=== PATIENT | male | born 1935 | race Caucasian/White ===

== ENCOUNTER 2017-11-18 10:00 | Observation (INO) ==
[2017-11-18] MEDS ORDERED: 0.9 % Sodium Chloride 1,000 ML IVC ONE ×2 (10:05→12:50)
--- NOTE | 2017-11-18 10:19 | Emergency Department Note ---
Disposition Clinical Impression: Pneumonia, Hypoxia, Fever, Elevated serum creatinine, Elevated troponin, Elevated lactic acid level Disposition: Admitted As Inpatient Condition: Fair Referrals: Ministerio Mancia MD [Primary Care Provider] - Forms: ED Satisfaction Letter General Adult HPI - General Chief complaint: ED Shortness of Breath/Dyspnea Stated complaint: LOWELL Time Seen by Provider: 11/18/17 10:04 Source: patient, family, EMS Limitations: no limitations Nursing Notes Reviewed: Yes Vital Signs Reviewed: Yes - History of Present Illness Pain Scale: 0 - Related Data Home Medications Medication Instructions Recorded Confirmed Aspirin 81 mg PO DAILY 08/04/15 11/18/17 Atorvastatin [Lipitor] 20 mg PO HS 08/04/15 11/18/17 GlipiZIDE [Glipizide Xl] 2.5 mg PO DAILY 08/04/15 11/18/17 Metoprolol XL (24 HR) Succ [Toprol 25 mg PO DAILY 08/04/15 11/18/17 Xl] OxyCODONE/APAP 10/325 [Percocet 1 tab PO Q6H 08/04/15 11/18/17 10/325] Allergies Allergy/AdvReac Type Severity Reaction Status Date / Time No Known Allergies Allergy Verified 07/13/15 22:47 Past Medical History - Past Medical History Medical history: Reports: dementia, diabetes, hypertension, renal disease Surgical history: Reports: carotid endarterectomy, cholecystectomy, other Psychiatric history: Reports: depression - Social History Smoking Status: Current every day smoker Smokeless Tobacco Status: No Alcohol use: Reports: rarely Drug use: Reports: none Physical Exam - General Limitations: no limitations General appearance: alert, in no apparent distress Course Vital Signs Temperature 98.9 F 11/18/17 10:01 Pulse Rate 115 11/18/17 10:01 Respiratory Rate 22 11/18/17 10:01 Blood Pressure 99/79 11/18/17 10:01 O2 Sat by Pulse Oximetry 91 11/18/17 10:01 Temperature 101.1 F H 11/18/17 11:04 Pulse Rate 107 11/18/17 12:46 Respiratory Rate 18 11/18/17 12:46 Blood Pressure 102/71 11/18/17 12:46 O2 Sat by Pulse Oximetry 99 11/18/17 12:46 Oxygen Delivery Oxygen Delivery Nasal Cannula Medical Decision Making - MDM Narrative Medical decision making narrative: This documentation is done with the assistance of Dragon dictation. Despite efforts made to ensure accuracy, there may be inaccuracies in automation technologist or spelling and typographical errors. I examined this patient and my medical decision-making was reviewed with the Resident Physician. I agree with the documented findings, disposition and treatment plan as described except to the extent set forth below. Patient seen and evaluated by Dr. Rae and myself, agree with his evaluation management plan, supervise care the patient's stay. On arrival with EMS. Patient's had some dyspnea with sats in the 80s he has a history of COPD were in to stabilize him treat and most likely admit. He is in agreement with this plan. Chest X-Ray 11/18/17 10:05 IMPRESSION: 1. Emphysema. No superimposed acute pulmonary abnormality. D/ / Soren Rudd MD / Soren Rudd MD Interpreting Provider: Soren Rudd MD 1500 hrs.: Waiting on hospitalist for admission. Antibiotics started in the emergency department. Patient's critical care time excluding any separately billable procedures is 35 minutes. - Lab Data Result diagrams: 11/18/17 10:52 11/18/17 10:52 Lab Results 11/18/17 11/18/17 11/18/17 Range/Units 10:52 10:52 10:52 WBC 7.9 (4.3-11.1) K/mcL RBC 4.11 L (4.19-5.50) M/mcL Hgb 12.5 L (12.9-16.9) g/dL Hct 38.6 (37.5-50.1) % MCV 93.9 (83.0-100.0) fL MCH 30.4 (28.0-33.3) pg MCHC 32.4 (31.6-35.5) g/dL RDW 13.2 (11.5-14.5) % Plt Count 114 L (140-400) K/mcL MPV 11.6 (9.4-12.4) fL Immature Gran % 0.5 (0-4) % Seg Neutrophils % 72.0 % Lymphocytes % 12.4 % Monocytes % 3.9 % Eosinophils % 10.9 % Basophils % 0.3 % Neutrophils # 5.7 (1.6-8.9) K/mcL Lymphocytes # 1.0 (0.6-4.6) K/mcL Monocytes # 0.3 (0.0-1.3) K/mcL Eosinophils # 0.9 H (0.0-0.6) K/mcL Basophils # 0.0 (0.0-0.2) K/mcL PT 11.4 (9.4-12.1) Seconds INR 1.1 Sodium 139 (136-145) mEq/L Potassium 4.5 (3.5-5.1) mEq/L Chloride 108 H (98-107) mEq/L Carbon Dioxide 20 L (23-29) mEq/L BUN 78 H (8-23) mg/dL Creatinine 3.90 H (0.70-1.30) mg/dL Est GFR ( Amer) 18 L (> 60) Est GFR (Non-Af Amer) 15 L (> 60) BUN/Creatinine Ratio 20 (6-26) Glucose 122 H (70-105) mg/dL Calculated Osmolality 313 H (280-300) Lactic Acid (0.5-2.2) mmol/L Calcium 8.6 (8.6-10.3) mg/dL Phosphorus 2.5 L (2.7-4.5) mg/dL Magnesium 1.7 (1.6-2.6) mg/dL Total Bilirubin 0.5 (0.3-1.0) mg/dL Direct Bilirubin 0.1 (0.0-0.2) mg/dL Indirect Bilirubin 0.4 (0.0-1.2) mg/dL AST 11 L (13-39) Units/L ALT 19 (7-52) Units/L Alkaline Phosphatase 159 H (34-104) Units/L Troponin I 0.11 H* (< 0.04) ng/mL Serum Total Protein 6.1 L (6.4-8.9) g/dL Albumin 2.8 L (3.5-5.7) g/dL Globulin 3.3 (2.4-3.5) g/dL Albumin/Globulin Ratio 0.8 L (1.1-2.2) Urine Color (Yellow) Urine Clarity (Clear) Urine pH (5.0-8.0) pH Units Ur Specific [place] (1.010-1.025) Urine Protein (Neg-Trace) mg/dL Urine Glucose (UA) (Normal) mg/dL Urine Ketones (Negative) mg/dL Urine Blood (Negative) Urine Nitrite (Negative) Urine Bilirubin (Negative) Urine Urobilinogen (Normal) mg/dL Ur Leukocyte Esterase (Negative) Urine Microscopic RBC (0-3) per hpf Urine Microscopic WBC (0-3) per hpf Ur Squamous Epith Cells (None-Few) per lpf Hyaline Casts (None-Few) per lpf Ur Culture Indicated? (NO) 11/18/17 11/18/17 Range/Units 10:52 11:23 WBC (4.3-11.1) K/mcL RBC (4.19-5.50) M/mcL Hgb (12.9-16.9) g/dL Hct (37.5-50.1) % MCV (83.0-100.0) fL MCH (28.0-33.3) pg MCHC (31.6-35.5) g/dL RDW (11.5-14.5) % Plt Count (140-400) K/mcL MPV (9.4-12.4) fL Immature Gran % (0-4) % Seg Neutrophils % % Lymphocytes % % Monocytes % % Eosinophils % % Basophils % % Neutrophils # (1.6-8.9) K/mcL Lymphocytes # (0.6-4.6) K/mcL Monocytes # (0.0-1.3) K/mcL Eosinophils # (0.0-0.6) K/mcL Basophils # (0.0-0.2) K/mcL PT (9.4-12.1) Seconds INR Sodium (136-145) mEq/L Potassium (3.5-5.1) mEq/L Chloride (98-107) mEq/L Carbon Dioxide (23-29) mEq/L BUN (8-23) mg/dL Creatinine (0.70-1.30) mg/dL Est GFR ( Amer) (> 60) Est GFR (Non-Af Amer) (> 60) BUN/Creatinine Ratio (6-26) Glucose (70-105) mg/dL Calculated Osmolality (280-300) Lactic Acid 2.4 H (0.5-2.2) mmol/L Calcium (8.6-10.3) mg/dL Phosphorus (2.7-4.5) mg/dL Magnesium (1.6-2.6) mg/dL Total Bilirubin (0.3-1.0) mg/dL Direct Bilirubin (0.0-0.2) mg/dL Indirect Bilirubin (0.0-1.2) mg/dL AST (13-39) Units/L ALT (7-52) Units/L Alkaline Phosphatase (34-104) Units/L Troponin I (< 0.04) ng/mL Serum Total Protein (6.4-8.9) g/dL Albumin (3.5-5.7) g/dL Globulin (2.4-3.5) g/dL Albumin/Globulin Ratio (1.1-2.2) Urine Color Yellow (Yellow) Urine Clarity Cloudy A (Clear) Urine pH 5.5 (5.0-8.0) pH Units Ur Specific [place] 1.022 (1.010-1.025) Urine Protein 30 H (Neg-Trace) mg/dL Urine Glucose (UA) Normal (Normal) mg/dL Urine Ketones Negative (Negative) mg/dL Urine Blood Negative (Negative) Urine Nitrite Negative (Negative) Urine Bilirubin Negative (Negative) Urine Urobilinogen Normal (Normal) mg/dL Ur Leukocyte Esterase Negative (Negative) Urine Microscopic RBC 0-3 (0-3) per hpf Urine Microscopic WBC 0-3 (0-3) per hpf Ur Squamous Epith Cells Many H (None-Few) per lpf Hyaline Casts Few (None-Few) per lpf Ur Culture Indicated? NO (NO)
[2017-11-18 11:10] LABS: Basophils % 0.3 %; Eosinophils # 0.9 K/mcL (0.0-0.6); Eosinophils % 10.9 %; Hematocrit 38.6 % (37.5-50.1); Hemoglobin 12.5 g/dL (12.9-16.9); Immature Granulocytes % 0.5 % (0-4); Lymphocytes % 12.4 %; Mean Corpuscular HGB Conc 32.4 g/dL (31.6-35.5); Mean Corpuscular Hemoglobin 30.4 pg (28.0-33.3); Mean Corpuscular Volume 93.9 fL (83.0-100.0); Mean Platelet Volume 11.6 fL (9.4-12.4); Monocytes # 0.3 K/mcL (0.0-1.3); Monocytes % 3.9 %; Neutrophils # 5.7 K/mcL (1.6-8.9); Platelet Count 114 K/mcL (140-400); Red Blood Count 4.11 M/mcL (4.19-5.50); Red Cell Distribution Width 13.2 % (11.5-14.5)
[2017-11-18] MEDS ORDERED: Acetaminophen 650 MG RECTAL SUPP RC STA (11:13)
[2017-11-18 11:16] LABS: INR 1.1; Prothrombin Time 11.4 Seconds (9.4-12.1)
--- NOTE | 2017-11-18 11:24 | Emergency Department Note ---
Disposition Clinical Impression: Hypoxia, Elevated serum creatinine, Elevated troponin, Elevated lactic acid level Pneumonia Qualifiers: Pneumonia type: due to unspecified organism Laterality: unspecified laterality Lung location: unspecified part of lung Qualified Code(s): J18.9 - Pneumonia, unspecified organism Fever Qualifiers: Fever type: unspecified Qualified Code(s): R50.9 - Fever, unspecified Disposition: Admitted As Inpatient Condition: Fair Referrals: Ministerio Mancia MD [Primary Care Provider] - Forms: ED Satisfaction Letter General Adult HPI - General Chief complaint: ED Shortness of Breath/Dyspnea Stated complaint: LOWELL Time Seen by Provider: 11/18/17 10:04 Source: patient, family, EMS Limitations: no limitations Nursing Notes Reviewed: Yes Vital Signs Reviewed: Yes - History of Present Illness HPI Narrative: Patient presents today for evaluation of confusion as well as cough and dyspnea. Patient was initially picked up by squad with a pulse ox in the low 80s. He was placed on oxygen. Patient has had a fever at home. He has had a cough. Productive sputum. He was seen by his primary care physician on Saturday where similar symptoms but not the severe had been discussed. He was placed on amoxicillin. Patient continued to decline and has not wanted to eat or drink enough to stay hydrated. Does not have a formal diagnosis of COPD. Does have wheezing on exam. He did get 2 breathing treatments by EMS prior to arrival. Pain Scale: 0 - Related Data Home Medications Medication Instructions Recorded Confirmed Aspirin 81 mg PO DAILY 08/04/15 08/04/15 Atorvastatin [Lipitor] 20 mg PO HS 08/04/15 08/04/15 GlipiZIDE [Glipizide Xl] 2.5 mg PO DAILY 08/04/15 08/04/15 Metoprolol XL (24 HR) Succ [Toprol 25 mg PO DAILY 08/04/15 08/04/15 Xl] OxyCODONE/APAP [Percocet 1 tab PO Q6H 08/04/15 08/04/15 10325] Previous Rx's Medication Instructions Recorded HYDROcodone/Acet 5/325 mg [[place] 1 tab PO Q4H PRN #10 tablet 08/04/15 5-325 mg] Allergies Allergy/AdvReac Type Severity Reaction Status Date / Time No Known Allergies Allergy Verified 07/13/15 22:47 Review of Systems: Review of systems taken from son CONSTITUTIONAL: Fever, fatigue, weakness HEENT: Not eating and drinking as much as usual SKIN: No rash or itching. CARDIOVASCULAR: No chest pain, chest pressure or chest discomfort. No palpitations or edema. RESPIRATORY: Shortness of breath with cough and sputum production, wheezing GASTROINTESTINAL: No anorexia, nausea, vomiting or diarrhea. No abdominal pain or blood. GENITOURINARY: Decreased urine output NEUROLOGICAL: Confusion/Alzheimer's MUSCULOSKELETAL: No muscle pain, back pain, joint pain or stiffness. Past Medical History - Past Medical History Medical history: Reports: dementia, diabetes, hypertension, renal disease Surgical history: Reports: carotid endarterectomy, cholecystectomy, other Psychiatric history: Reports: depression - Social History Smoking Status: Current every day smoker Smokeless Tobacco Status: No Alcohol use: Reports: rarely Drug use: Reports: none Physical Exam General: Well appearing, nontoxic, no acute distress Head: Normocephalic Atraumatic Eyes: PERRL, EOMI ENT: Airway patent, no stridor Neck: supple, no meningismus Chest: Mild wheezing bilaterally worse in the right upper lobes Cardiac: Regular rhythm Abdomen: soft, nontender, nondistended; no guarding, rebound, or tenderness to percussion Musculoskeletal: Calves symmetric, nontender, no palpable cord Skin: No rash, normal skin tone Neuro: Alert and alert and oriented to person. Follows commands. No gross deficits. - General Limitations: no limitations General appearance: alert, in no apparent distress Course - Reevaluation(s) Reevaluation #1: The patient continues to be in no distress. The patient has gotten fluids as well as Tylenol for documented fever. He has been tachycardic with sinus tachycardia. 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 The patient follows with Dr. Browne. He has an elevated lactate acid as well at 2.4. The patient's symptoms of hypoxia fever cough and positive sputum production point towards clinical diagnosis of pneumonia despite negative chest x-ray. Chest x-ray does show emphysema and the patient is not have a formal diagnosis of COPD or emphysema. Does not take breathing treatments at home. Does not require oxygen at home. Patient will be admitted for hypoxia fever and likely pneumonia. Reevaluation #2: Patient denies chest pain. Patient has not had any chest pain during the last several days. Vital Signs Temperature 98.9 F 11/18/17 10:01 Pulse Rate 115 11/18/17 10:01 Respiratory Rate 22 11/18/17 10:01 Blood Pressure 99/79 11/18/17 10:01 O2 Sat by Pulse Oximetry 91 11/18/17 10:01 Temperature 101.1 F H 11/18/17 11:04 Pulse Rate 114 11/18/17 11:04 Respiratory Rate 20 11/18/17 11:04 Blood Pressure 95/60 11/18/17 11:04 O2 Sat by Pulse Oximetry 100 11/18/17 11:04 Oxygen Delivery Oxygen Delivery Nasal Cannula Medical Decision Making - Medical Records Medical records reviewed: Yes I reviewed the patient's medical records. - Lab Data Lab results reviewed: Yes I reviewed the patient's lab results. Result diagrams: 11/18/17 10:52 11/18/17 10:52 Lab Results 11/18/17 11/18/17 11/18/17 Range/Units 10:52 10:52 10:52 WBC 7.9 (4.3-11.1) K/mcL RBC 4.11 L (4.19-5.50) M/mcL Hgb 12.5 L (12.9-16.9) g/dL Hct 38.6 (37.5-50.1) % MCV 93.9 (83.0-100.0) fL MCH 30.4 (28.0-33.3) pg MCHC 32.4 (31.6-35.5) g/dL RDW 13.2 (11.5-14.5) % Plt Count 114 L (140-400) K/mcL MPV 11.6 (9.4-12.4) fL PT 11.4 (9.4-12.1) Seconds INR 1.1 Sodium 139 (136-145) mEq/L Potassium 4.5 (3.5-5.1) mEq/L Chloride 108 H (98-107) mEq/L Carbon Dioxide 20 L (23-29) mEq/L BUN 78 H (8-23) mg/dL Creatinine 3.90 H (0.70-1.30) mg/dL Est GFR ( Amer) 18 L (> 60) Est GFR (Non-Af Amer) 15 L (> 60) BUN/Creatinine Ratio 20 (6-26) Glucose 122 H (70-105) mg/dL Calculated Osmolality 313 H (280-300) Lactic Acid (0.5-2.2) mmol/L Calcium 8.6 (8.6-10.3) mg/dL Phosphorus 2.5 L (2.7-4.5) mg/dL Magnesium 1.7 (1.6-2.6) mg/dL Total Bilirubin 0.5 (0.3-1.0) mg/dL Direct Bilirubin 0.1 (0.0-0.2) mg/dL Indirect Bilirubin 0.4 (0.0-1.2) mg/dL AST 11 L (13-39) Units/L ALT 19 (7-52) Units/L Alkaline Phosphatase 159 H (34-104) Units/L Troponin I 0.11 H* (< 0.04) ng/mL Serum Total Protein 6.1 L (6.4-8.9) g/dL Albumin 2.8 L (3.5-5.7) g/dL Globulin 3.3 (2.4-3.5) g/dL Albumin/Globulin Ratio 0.8 L (1.1-2.2) Urine Color (Yellow) Urine Clarity (Clear) Urine pH (5.0-8.0) pH Units Ur Specific [place] (1.010-1.025) Urine Protein (Neg-Trace) mg/dL Urine Glucose (UA) (Normal) mg/dL Urine Ketones (Negative) mg/dL Urine Blood (Negative) Urine Nitrite (Negative) Urine Bilirubin (Negative) Urine Urobilinogen (Normal) mg/dL Ur Leukocyte Esterase (Negative) Urine Microscopic RBC (0-3) per hpf Urine Microscopic WBC (0-3) per hpf Ur Squamous Epith Cells (None-Few) per lpf Hyaline Casts (None-Few) per lpf Ur Culture Indicated? (NO) 11/18/17 11/18/17 Range/Units 10:52 11:23 WBC (4.3-11.1) K/mcL RBC (4.19-5.50) M/mcL Hgb (12.9-16.9) g/dL Hct (37.5-50.1) % MCV (83.0-100.0) fL MCH (28.0-33.3) pg MCHC (31.6-35.5) g/dL RDW (11.5-14.5) % Plt Count (140-400) K/mcL MPV (9.4-12.4) fL PT (9.4-12.1) Seconds INR Sodium (136-145) mEq/L Potassium (3.5-5.1) mEq/L Chloride (98-107) mEq/L Carbon Dioxide (23-29) mEq/L BUN (8-23) mg/dL Creatinine (0.70-1.30) mg/dL Est GFR ( Amer) (> 60) Est GFR (Non-Af Amer) (> 60) BUN/Creatinine Ratio (6-26) Glucose (70-105) mg/dL Calculated Osmolality (280-300) Lactic Acid 2.4 H (0.5-2.2) mmol/L Calcium (8.6-10.3) mg/dL Phosphorus (2.7-4.5) mg/dL Magnesium (1.6-2.6) mg/dL Total Bilirubin (0.3-1.0) mg/dL Direct Bilirubin (0.0-0.2) mg/dL Indirect Bilirubin (0.0-1.2) mg/dL AST (13-39) Units/L ALT (7-52) Units/L Alkaline Phosphatase (34-104) Units/L Troponin I (< 0.04) ng/mL Serum Total Protein (6.4-8.9) g/dL Albumin (3.5-5.7) g/dL Globulin (2.4-3.5) g/dL Albumin/Globulin Ratio (1.1-2.2) Urine Color Yellow (Yellow) Urine Clarity Cloudy A (Clear) Urine pH 5.5 (5.0-8.0) pH Units Ur Specific [place] 1.022 (1.010-1.025) Urine Protein 30 H (Neg-Trace) mg/dL Urine Glucose (UA) Normal (Normal) mg/dL Urine Ketones Negative (Negative) mg/dL Urine Blood Negative (Negative) Urine Nitrite Negative (Negative) Urine Bilirubin Negative (Negative) Urine Urobilinogen Normal (Normal) mg/dL Ur Leukocyte Esterase Negative (Negative) Urine Microscopic RBC 0-3 (0-3) per hpf Urine Microscopic WBC 0-3 (0-3) per hpf Ur Squamous Epith Cells Many H (None-Few) per lpf Hyaline Casts Few (None-Few) per lpf Ur Culture Indicated? NO (NO) - Radiology Data Radiology results reviewed: Yes I reviewed the patient's radiology results. - EKG Data EKG #1 EKG attestation: Yes I reviewed and interpreted this EKG. EKG results narrative: EKG shows sinus tachycardia with a ventricular rate of 114. No significant ST elevation. Patient does have ST depression through the lateral leads.
[2017-11-18 11:27] LABS: Albumin 2.8 g/dL (3.5-5.7); Albumin/Globulin Ratio 0.8 (1.1-2.2); Bilirubin,Direct 0.1 mg/dL (0.0-0.2); Bilirubin,Indirect 0.4 mg/dL (0.0-1.2); Bilirubin,Total 0.5 mg/dL (0.3-1.0); Calcium 8.6 mg/dL (8.6-10.3); Globulin 3.3 g/dL (2.4-3.5); Magnesium 1.7 mg/dL (1.6-2.6); Phosphorous 2.5 mg/dL (2.7-4.5); Potassium 4.5 mEq/L (3.5-5.1); Total Protein 6.1 g/dL (6.4-8.9)
[2017-11-18 11:33] LABS: Troponin I 0.11 ng/mL (< 0.04)
[2017-11-18 12:04] LABS: Bilirubin,Urine Negative (Negative); Blood,Urine Negative (Negative); Clarity,Urine Cloudy (Clear); Color,Urine Yellow (Yellow); Glucose,Urine (UA) Normal (Normal); Ketones,Urine Negative (Negative); Leukocyte Esterase,Urine Negative (Negative); Nitrite,Urine Negative (Negative); PH,Urine 5.5 pH Units (5.0-8.0); Protein,Urine 30 mg/dL (Neg-Trace); Specific Gravity,Urine 1.022 (1.010-1.025); Urobilinogen,Urine Normal (Normal)
[2017-11-18 12:14] LABS: Hyaline Casts,Urine Few per lpf (None-Few); RBC,Urine 0-3 per hpf (0-3); Squamous Epithelial Cell,Urine Many per lpf (None-Few); WBC,Urine 0-3 per hpf (0-3)
[2017-11-18] MEDS ORDERED: methylPREDNISolone 125 MG/2 ML VIAL IVP ONE (12:35)
[2017-11-18] MEDS ORDERED: Ipratropium/Albuterol Neb 3 ML IH ONE (12:35)
[2017-11-18] MEDS ORDERED: Levofloxacin 750 MG/150 ML 750 MG/150 ML BAG IVPB ONE (12:36)
[2017-11-18] MEDS ORDERED: 0.9 % Sodium Chloride 1,000 ML ONE (12:57)
[2017-11-18] MEDS ORDERED: *HR* OxyCODONE/APAP 10/325 TABLET PO ONE (16:13)
[2017-11-18] MEDS: Nicotine 21 MG PATCH.TD24 TD SCH (16:37)
[2017-11-18] MEDS ORDERED: Naloxone 0.4 MG/ML INJ IVP PRN (16:46)
[2017-11-18] MEDS ORDERED: Acetaminophen 650 MG RECTAL SUPP RC PRN (17:06)
[2017-11-18 17:15] LABS: ABG Base Excess -5 mEq/L (-2 to 3); ABG HCO3 20 mEq/L (21-27); ABG Oxygen Saturation 96 % (95-98); ABG PCO2 34 mmHg (35-45); ABG PH 7.36 pH Units (7.32-7.45); ABG PO2 87 mmHg (85-104); ABG TCO2 21 mEq/L (20-26)
[2017-11-18] MEDS ORDERED: Dextrose Gel 15 GM/37.5 ML TUBE PO PRN ×2 (17:22)
[2017-11-18] MEDS ORDERED: D5% in Water 1,000 ML IVC PRN (17:22)
[2017-11-18] MEDS ORDERED: *HR* Dextrose 50 % in Water (Syg) 50 ML SYRINGE IVP PRN (17:22)
--- NOTE | 2017-11-18 17:28 | Internal Med History&Physical ---
<Wilfredo Gay - Last Filed: 11/18/17 18:14> Date of Encounter: 11/18/17 Time of Encounter: 14:00 Assessment and Plan (1) Acute exacerbation of chronic obstructive pulmonary disease (COPD) Current visit: Yes Status: Acute Acute exacerbation of COPD. CXR today shows emphysema. Pts. son reports pt. smokes 1 PPD. Solumedrol 40 mg Q8 ordered. Supplemental O2 w/titration and SpO2 monitoring. ABG ordered. DuoNebs Q6 scheduled. Mucinex for cough. IVPB levaquin 500 mg Q48 w/renal dosing for bronchitis. Falls/safety precautions d/t SOB and weakness. Will add BiPap if hypoxia continues/worsens. Pt. currently 93-100% on 2-3L. Monitor pt. and f/u labs. Pt. discussed w/Dr. Joshi who agrees w/plan of care. Pt. is high risk for further morbidity d/t current hypoxia complicated by bronchitis and COPD exacerbation, current tobacco abuse, sepsis criteria, elevated D-dimer and possible PE, hx, and risk factors. Observation. (2) Sepsis Current visit: Yes Status: Acute Sepsis criteria w/HR of 115, RR of 22, and temp of 101.1F. Pt. given 2L IV 0.9 NS in ED. Initial lactic acid 2.4, then 1.9 following fluids. Will repeat. IVPB levaquin for bronchitis infection coverage w/renal dosing @ 500 mg Q48. Blood cultures x2. Respiratory infection panel ordered. Will adjust abx coverage based on culture results. Pt. and f/u labs to be monitored closely. Qualifiers: Sepsis type: sepsis due to unspecified organism Qualified Code(s): A41.9 - Sepsis, unspecified organism (3) Difficulty swallowing Current visit: Yes Status: Acute Acute dysphagia recently. Pts. son reports pt. has difficulty swallowing. Dysphagia screen ordered and pt. to be NPO until passed. Pts. son also reports reduced oral intake. Nutrition consult ordered for PO supplementation to begin when dysphagia screening passed. Qualifiers: Dysphagia type: unspecified Qualified Code(s): R13.10 - Dysphagia, unspecified (4) Bronchitis Current visit: Yes Status: Acute Acute bronchitis w/COPD exacerbation. CXR today shows emphysema with no superimposed acute pulmonary abnormality. IVPB levaquin 750 mg administered in ED. Dose adjusted to 500 mg Q48 d/t pts. current renal dysfunction. Pt. febrile w/temp of 101.1F. WBC WNL. Supplemental O2 w/titration and SpO2 monitoring. DuoNebs Q6 scheduled. Mucinex for cough. Pt. and f/u labs to be monitored. (5) Hypoxia Current visit: Yes Status: Acute Acute hypoxia w/SOB and dyspnea worsening over the past few weeks and worsening today. ABG ordered. Supplemental O2 w/titration and SpO2 monitoring. DuoNebs Q6 scheduled. Mucinex for cough. Concern for possible PE d/t increasing SOB. D- dimer 7026. VQ scan ordered stat. Will place pt. on heparin drip if warranted by VQ results. SpO2 ranging from 93-100% on 2-3L currently. Will add BiPap if warranted. (6) CKD (chronic kidney disease) stage 4, GFR 15-29 ml/min Current visit: Yes Status: Chronic Hx of CKD. Currently Stage 4 w/GFR of 15 and creatinine 3.90. Pts. son reports pt. sees Dr. Guerrero. Spoke w/Dr. Guerrero to let him know pt. is being admitted w/recommendation to contact him immediately if pts. renal function declines. Monitor I&O. IV fluids to be used judiciously. Avoid nephrotoxins. IVPB levaquin 500 Q48 w/renal dosing. (7) HTN (hypertension) Current visit: Yes Status: Chronic Hx of chronic HTN. Monitor pt. and VS. Continue pts. Metoprolol. Qualifiers: Hypertension type: essential hypertension Qualified Code(s): I10 - Essential (primary) hypertension (8) Diabetes Current visit: Yes Status: Chronic Hx of chronic diabetes controlled w/oral anti-hyperglycemic medications. Hold oral and administer low-dose correction insulin sliding scale w/hypoglycemic protocol. BG checks ACHS. A1c in a.m. labs. Qualifiers: Diabetes mellitus type: type 2 Diabetes mellitus complication status: with unspecified complications Diabetes mellitus terminal clerk insulin use: without terminal clerk use Qualified Code(s): E11.8 - Type 2 diabetes mellitus with unspecified complications (9) Alzheimer's dementia Current visit: Yes Status: Chronic Hx of Alzheimer's-related dementia. Son reports pt. has Sundowners at night. Also reports pt. was placed on medication for Alzheimer's previously but taken off for unknown reason. Falls/safety precautions, up with assist, bed rest w/ bedside commode w/assist only. Seroquel HS 25 mg. PRN. Will substitute Haldol IVP if pt. does not pass ordered dysphagia screen. Qualifiers: Alzheimer's disease onset: unspecified onset Dementia behavioral disturbance: with behavioral disturbance Qualified Code(s): G30.9 - Alzheimer' s disease, unspecified; F02.81 - Dementia in other diseases classified elsewhere with behavioral disturbance; F02.81 - Dementia in other diseases classified elsewhere with behavioral disturbance; F02.81 - Dementia in other diseases classified elsewhere with behavioral disturbance (10) Tobacco abuse Current visit: Yes Status: Chronic Hx of chronic tobacco abuse. Pts. son reports currently patient smokes one pack per day. 21 mg nicotine patch ordered daily (11) DVT prophylaxis Current visit: Yes Status: Acute Heparin 5,000 units SQ Q8 for DVT prophylaxis. Monitor pt. for signs of bleeding. Internal Medicine - H&P: HPI Chief complaint: SOB/Dyspnea Admitted From: Emergency Dept Plans for Post Hospital Care: Home History of present illness: Mr. Gerard is a 81 year old male w/PMH of Alzheimer's related dementia, diabetes controlled with oral antihyperglycemic medications, HTN, and renal disease presents from the ED with chief complaint of shortness of breath, dyspnea, and weakness over the past two weeks that became worse this morning. Pts. son reports squad was called on Saturday and pt. assessed w/findings of SOB but pt. did not want to come to hospital. Worse today. Pts. son also reports difficulty w/swallowing and Sundowners at night. Pt. takes Percocet for chronic back pain. Pt. reports weakness and fever but denies recent illness, chills, nausea, vomiting, chest pain, headache, changes in vision, abdominal pain, diarrhea, constipation, pre-syncope, or syncope. Past Med Surg Social Fam HX - Past Medical History Source: patient, old records reviewed, obtained from family Medical history: dementia (Alzheimer's ), diabetes, hypertension, renal disease Psychiatric history: depression - Past Surgical History Surgical History: carotid endarterectomy, cholecystectomy, other - Social History Smoking Status: Current every day smoker Packs per day: 1 PPD Smokeless Tobacco Status: No Alcohol use: rarely Drug use: none Current living situation: Home, With Family Activity Level: Uses cane/walker Recent Out of Country Travel Within the Last 8 Weeks: No Exposure or Possible Exposure to Illness During Travel: No - Family History Father Race: Family Member Ethnicity: Non- Living Status: Cause of : Cancer Hx Family Cancer: Yes Mother History Unknown: Yes Race: Family Member Ethnicity: Non- Living Status: Brother Race: Family Member Ethnicity: Non- Living Status: Still Living Hx Family Cardiac Disorders: Yes (Heart blockages) Sister Race: Family Member Ethnicity: Non- Living Status: Still Living Hx Family Medical Disorders: No Internal Medicine - H&P: Meds Aspirin 81 mg PO DAILY 08/04/15 [History] Atorvastatin [Lipitor] 20 mg PO HS 08/04/15 [History] GlipiZIDE [Glipizide Xl] 2.5 mg PO DAILY 08/04/15 [History] Metoprolol XL (24 HR) Succ [Toprol Xl] 25 mg PO DAILY 08/04/15 [History] OxyCODONE/APAP 10/325 [Percocet 10/325] 1 tab PO Q6H 08/04/15 [History] 3 Allergy/AdvReac Type Severity Reaction Status Date / Time No Known Allergies Allergy Verified 07/13/15 22:47 All Systems PM: A 10-system review of systems was performed and is negative for pertinent findings except as documented above in the HPI. - Constitutional Constitutional: as per HPI, fever(s), weakness, no chills, no night sweats - EENT Eyes: no change in vision, no discharge, no pain, no photophobia Ears: no ear discharge, no ear pain, no tinnitus Nose, mouth and throat: no dysphagia, no nasal discharge, no neck pain, no sore throat - Breasts Breasts: as per HPI - Cardiovascular Cardiovascular ROS IM: as per HPI, dyspnea, dyspnea on exertion, no chest pain, no diaphoresis, no lightheadedness, no palpitations, no syncope - Respiratory Respiratory: as per HPI, cough, dyspnea, dyspnea on exertion - Gastrointestinal Gastrointestinal: no abdominal pain, no diarrhea, no hematemesis, no hematochezia, no melena, no nausea, no vomiting - Genitourinary Genitourinary ROS male: as per HPI - Musculoskeletal Musculoskeletal ROS IM: no numbness, no tingling - Integumentary Integumentary IM: no rash, no unusual bruising - Neurological Neurological ROS: no confusion, no convulsions, no focal weakness, no numbness, no tingling, no tremor(s) - Psychiatric Psychiatric: as per HPI, depression - Endocrine Endocrine IM: as per HPI - Hematologic/Lymphatic Hematologic/Lymphatic: no easy bruising - Allergic/Immunologic Allergic/Immunologic: as per HPI - Constitutional Vitals: Temp Pulse Resp BP Pulse Ox 100.0 F H 80 18 117/60 100 11/18/17 13:26 11/18/17 16:13 11/18/17 16:13 11/18/17 16:13 11/18/17 16:13 General appearance: Present: cooperative, A&O X 2, mild distress (Respiratory), no acute distress, underweight, answers questions appropriately - Head Head exam: Present: atraumatic, normocephalic - Eye Eye exam: Present: PERRL, conjuntiva pink, sclera anicteric Pupils: Present: PERRL - ENT ENT exam: Present: normal exam - Neck Neck exam general surgery: Present: normal inspection, supple, trachea midline. Absent: lymphadenopathy - Respiratory Respiratory exam: Present: decreased breath sounds - Cardiovascular Cardiovascular exam: Present: RRR, +S1, +S2, tachycardia. Absent: diastolic murmur, gallop, rubs, systolic murmur - GI/Abdominal GI/Abdominal exam: Present: normal bowel sounds, soft, no peritoneal signs. Absent: distended, tenderness - Rectal Rectal exam: Present: deferred - Additional comments: exam deferred. - Extremities Exam Extremities exam: Present: warm, radial pulses palpable and symmetrical. Absent : calf tenderness, cyanotic, pedal edema - Back Exam Back exam: Present: normal inspection - Neurological Exam Neurological exam: Present: altered, CN II-XII intact, no focal deficits. Absent: pronater drift, facial droop, speech deficit - Psychiatric Psychiatric exam: Present: normal affect, normal mood - Skin Skin exam: Present: dry, intact Internal Med - H&P Results - Labs CBC & Chem 7: 11/18/17 10:52 11/18/17 10:52 Labs: Short CBC 11/18/17 Range/Units 10:52 WBC 7.9 (4.3-11.1) K/mcL Hgb 12.5 L (12.9-16.9) g/dL Hct 38.6 (37.5-50.1) % Plt Count 114 L (140-400) K/mcL Neutrophils # 5.7 (1.6-8.9) K/mcL BMP 11/18/17 10:52 Sodium 139 Potassium 4.5 Chloride 108 H Carbon Dioxide 20 L BUN 78 H Creatinine 3.90 H Glucose 122 H Calcium 8.6 Cardiac Enzymes 11/18/17 Range/Units 10:52 Troponin I 0.11 H* (< 0.04) ng/mL Liver Function 11/18/17 Range/Units 10:52 Total Bilirubin 0.5 (0.3-1.0) mg/dL Direct Bilirubin 0.1 (0.0-0.2) mg/dL AST 11 L (13-39) Units/L ALT 19 (7-52) Units/L Alkaline Phosphatase 159 H (34-104) Units/L Albumin 2.8 L (3.5-5.7) g/dL Urine 11/18/17 Range/Units 11:23 Urine Color Yellow (Yellow) Urine Clarity Cloudy A (Clear) Urine pH 5.5 (5.0-8.0) pH Units Ur Specific [place] 1.022 (1.010-1.025) Urine Protein 30 H (Neg-Trace) mg/dL Urine Glucose (UA) Normal (Normal) mg/dL - ABG Interpretation ABG results: 11/18/17 17:10 ABG pH 7.36 ABG pCO2 34 L ABG pO2 87 ABG HCO3 20 L ABG Total CO2 21 ABG O2 Saturation 96 ABG Base Excess -5 L - EKG Data EKG shows normal: sinus rhythm Rate: tachycardia - EKG Data Prior EKG available for review: no Interpretation IM: suggestive of ischemia EKG comments: 11/18/17 17:34 EKG dated 11/18/17 shows sinus tachycardia with occasional ventricular premature complexes and anteroseptal myocardial infarction of indeterminate age. - Impressions ITS Impressions Chest X-Ray 11/18/17 10:05 IMPRESSION: 1. Emphysema. No superimposed acute pulmonary abnormality. D/ / Soren Rudd MD / Soren Rudd MD Interpreting Provider: Soren Rudd MD - Diagnostic Studies Chest x-ray Additional comments: Impressions Chest X-Ray 11/18/17 10:05 IMPRESSION: 1. Emphysema. No superimposed acute pulmonary abnormality. D/ / Soren Rudd MD / Soren Rudd MD Interpreting Provider: Soren Rudd MD <Miki Joshi - Last Filed: 11/18/17 19:21> Date of Encounter: 11/18/17 Internal Medicine - H&P: HPI History of present illness: Mr. Gerard is a 81 year old male All Systems PM: A 10-system review of systems was performed and is negative for pertinent findings except as documented above in the HPI. - Constitutional Vitals: Temp Pulse Resp BP Pulse Ox 100.0 F H 84 18 133/66 94 11/18/17 13:26 11/18/17 18:34 11/18/17 18:34 11/18/17 18:34 11/18/17 18:34 Internal Med - H&P Results - Labs CBC & Chem 7: 11/18/17 10:52 11/18/17 10:52 - Attending Attestation I have personally performed a face to face evaluation on this patient. I have reviewed and agree with the care plan. History and Exam by me shows: Patient was brought to the hospital by family due to worsening shortness of breath. He cannot provide history due to dementia. He appears in no distress. Lung exam reveals diminished breath sounds throughout with faint expiratory wheezes, no rails. Heart is regular Chest x-ray was personally reviewed shows no infiltrate and effusion or vascular congestion. Findings consent consistent with emphysema. Plan: Shortness of breath and fever secondary to acute bronchitis and COPD exacerbation. We will admit the patient. Treatment with inhaled bronchodilators, IV steroids , IV antibiotics. Check d-dimer. Miki Joshi MD
[2017-11-18] MEDS: Insulin LISPRO 300 UNITS/3 ML VIAL SQ SCH (20:45)
[2017-11-18] MEDS: *HR* Heparin 5,000 UNIT/ML VIAL SQ SCH (20:45)
[2017-11-18] MEDS: *HR* OxyCODONE/APAP 10/325 TABLET PO SCH (21:05)
[2017-11-18] MEDS: Ipratropium/Albuterol Neb 3 ML IH SCH (21:58)
[2017-11-19] MEDS: *HR* OxyCODONE/APAP 10/325 TABLET PO SCH ×3 (00:09→11:48)
[2017-11-19] MEDS: methylPREDNISolone 125 MG/2 ML VIAL IVP SCH ×3 (00:10→17:16)
[2017-11-19 01:30] LABS: Immature Granulocytes % 0.4 % (0-4)
[2017-11-19 01:33] LABS: Basophils % 0.2 %; Eosinophils % 0.4 %; Hematocrit 34.5 % (37.5-50.1); Hemoglobin 10.5 g/dL (12.9-16.9); Immature Platelets 7.7 % (1.1-6.1); Lymphocytes # 0.9 K/mcL (0.6-4.6); Lymphocytes % 17.3 %; Mean Corpuscular HGB Conc 30.4 g/dL (31.6-35.5); Mean Corpuscular Hemoglobin 29.4 pg (28.0-33.3); Mean Corpuscular Volume 96.6 fL (83.0-100.0); Mean Platelet Volume 11.9 fL (9.4-12.4); Monocytes # 0.2 K/mcL (0.0-1.3); Monocytes % 3.4 %; Neutrophils # 3.9 K/mcL (1.6-8.9); Nucleated Red Blood Cells 0.4 /100 WBC (0); Red Blood Count 3.57 M/mcL (4.19-5.50); Red Cell Distribution Width 13.4 % (11.5-14.5); Segmented Neutrophils % 78.3 %
[2017-11-19 02:01] LABS: Platelet Count 99 K/mcL (140-400)
[2017-11-19 02:03] LABS: Platelet Estimate Decreased (Normal)
[2017-11-19 02:45] LABS: Albumin 2.7 g/dL (3.5-5.7); Albumin/Globulin Ratio 0.9 (1.1-2.2); Bilirubin,Total 0.5 mg/dL (0.3-1.0); Chol/HDL Ratio 4.2 (0-4.9); Magnesium 1.7 mg/dL (1.6-2.6); Potassium 4.7 mEq/L (3.5-5.1); Total Protein 5.7 g/dL (6.4-8.9)
[2017-11-19] MEDS: Ipratropium/Albuterol Neb 3 ML IH SCH ×4 (03:41→22:11)
[2017-11-19] MEDS: *HR* Heparin 5,000 UNIT/ML VIAL SQ SCH ×3 (06:03→22:28)
[2017-11-19 07:17] LABS: Hemoglobin A1C 7.9 %
[2017-11-19] MEDS: Metoprolol XL (24 HR) Succ 25 MG TAB.ER.24H PO SCH (08:15)
[2017-11-19] MEDS: Aspirin 81 MG TAB.CHEW PO SCH (08:15)
[2017-11-19] MEDS: Nicotine 21 MG PATCH.TD24 TD SCH (08:15)
[2017-11-19] MEDS: Insulin LISPRO 300 UNITS/3 ML VIAL SQ SCH ×4 (08:16→22:28)
--- NOTE | 2017-11-19 09:57 | Internal Med Progress Note ---
Date of Encounter: 11/19/17 Time of Encounter: 09:57 - Subjective Interval history: Interval changes: Breathing more comfortably. No cp/pressure Acute exacerbation of chronic obstructive pulmonary disease (COPD) DuoNebs Q6 scheduled. Mucinex for cough. IVPB levaquin 500 mg Q48 w/renal dosing for bronchitis. BiPap if hypoxia continues/worsens. Bronchitis Acute bronchitis w/COPD exacerbation. CXR today shows emphysema with no superimposed acute pulmonary abnormality. IVPB levaquin 750 mg administered in ED. Dose adjusted to 500 mg Q48 d/t pts. current renal dysfunction. Pt. febrile w/temp of 101.1F. WBC WNL. Supplemental O2 w/titration and SpO2 monitoring. DuoNebs Q6 scheduled. Mucinex for cough. Pt. and f/u labs to be monitored. Difficulty swallowing Acute dysphagia recently. Pts. son reports pt. has difficulty swallowing. Dysphagia screen ordered and pt. to be NPO until passed. Pts. son also reports reduced oral intake. Nutrition consult ordered for PO supplementation to begin when dysphagia screening passed. CKD (chronic kidney disease) stage 4, GFR 15-29 ml/min Hx of CKD. Currently Stage 4 w/GFR of 15 and creatinine 3.90. Pts. son reports pt. sees Dr. Guerrero. Spoke w/Dr. Guerrero to let him know pt. is being admitted w/recommendation to contact him immediately if pts. renal function declines. Monitor I&O. IV fluids to be used judiciously. Avoid nephrotoxins. IVPB levaquin 500 Q48 w/renal dosing. HTN (hypertension) Hx of chronic HTN. Monitor pt. and VS. Continue pts. Metoprolol. DM-2 Hx of chronic diabetes controlled w/oral anti-hyperglycemic medications. Hold oral and administer low-dose correction insulin sliding scale w/hypoglycemic protocol. BG checks ACHS. A1c in a.m. labs. - Constitutional Vitals: Temp Pulse Resp BP Pulse Ox 97.7 F 91 16 103/68 98 11/19/17 06:29 11/19/17 06:29 11/19/17 06:29 11/19/17 06:29 11/19/17 06:29 General appearance: Present: cooperative, A&O X 2, mild distress (Respiratory), no acute distress, underweight, answers questions appropriately - Head Head exam: Present: atraumatic, normocephalic - Eye Eye exam: Present: PERRL, conjuntiva pink, sclera anicteric Pupils: Present: PERRL - Neck Neck exam general surgery: Present: supple, trachea midline. Absent: lymphadenopathy - Respiratory Respiratory exam: Present: rales. Absent: accessory muscle use, CTAB, rhonchi, wheezes - Cardiovascular Cardiovascular exam: Present: RRR, +S1, +S2. Absent: diastolic murmur, gallop, rubs, systolic murmur - GI/Abdominal GI/Abdominal exam: Present: normal bowel sounds, soft, no peritoneal signs. Absent: distended, tenderness - Extremities Exam Extremities exam: Present: warm, radial pulses palpable and symmetrical. Absent : calf tenderness, cyanotic, pedal edema - Neurological Exam Neurological exam: Present: CN II-XII intact, oriented X3, no focal deficits. Absent: pronater drift, facial droop, speech deficit - Psychiatric Psychiatric exam: Present: normal affect, normal mood - Skin Skin exam: Present: dry, intact Internal Medicine: Result - Labs CBC & Chem 7: 11/19/17 00:49 11/19/17 00:49 Labs: Short CBC 11/19/17 Range/Units 00:49 WBC 5.0 (4.3-11.1) K/mcL Hgb 10.5 L D (12.9-16.9) g/dL Hct 34.5 L (37.5-50.1) % Plt Count 99 L (140-400) K/mcL Neutrophils # 3.9 (1.6-8.9) K/mcL BMP 11/19/17 00:49 Sodium 137 Potassium 4.7 Chloride 106 Carbon Dioxide 19 L BUN 80 H Creatinine 3.66 H Glucose 219 H Calcium 8.0 L Cardiac Enzymes 11/19/17 Range/Units 00:49 Troponin I 0.10 H* (< 0.04) ng/mL Liver Function 11/19/17 Range/Units 00:49 Total Bilirubin 0.5 (0.3-1.0) mg/dL AST 10 L (13-39) Units/L ALT 17 (7-52) Units/L Alkaline Phosphatase 139 H (34-104) Units/L Albumin 2.7 L (3.5-5.7) g/dL - ABG Interpretation ABG results: ABG ABG pH 7.36 pH Units (7.32-7.45) 11/18/17 17:10 ABG pCO2 34 mmHg (35-45) L 11/18/17 17:10 ABG pO2 87 mmHg (85-104) 11/18/17 17:10 ABG O2 Saturation 96 % (95-98) 11/18/17 17:10 PT/INR, D-dimer PT 11.4 Seconds (9.4-12.1) 11/18/17 10:52 D-Dimer 7026 ng/mLFEU (0-500) H 11/18/17 15:47 Consult Discharge Plan - Plan Referrals: Mancia,Ministerio Rosenbaum MD [Primary Care Provider] -
[2017-11-19 10:13] LABS: Adenovirus Not Detected (Not Detect); Coronavirus 229E Not Detected (Not Detect); Coronavirus HKU1 Not Detected (Not Detect)
[2017-11-19 10:14] LABS: Bordetella Pertussis Not Detected (Not Detect); Chlamydophila pneumoniae Not Detected (Not Detect); Coronavirus NL63 Not Detected (Not Detect); Coronavirus OC43 Not Detected (Not Detect); Human Metapneumovirus Not Detected (Not Detect); Human Rhinovirus/Enterovirus Not Detected (Not Detect); Influenza A Subtype 2009 H1 Not Detected (Not Detect); Influenza A Untypeable Not Detected (Not Detect); Influenza B Not Detected (Not Detect); Mycoplasma pneumoniae Not Detected (Not Detect); Parainfluenza Virus 1 Not Detected (Not Detect); Parainfluenza Virus 2 Not Detected (Not Detect); Parainfluenza Virus 3 Not Detected (Not Detect); Parainfluenza Virus 4 Not Detected (Not Detect); Respiratory Syncytial Virus Not Detected (Not Detect)
--- NOTE | 2017-11-19 14:19 | Electrocardiograph Report ---
[facility] Test Date: 2017-11-18 Pat Name: Chacorta Gerard Department: 103 Room: 2NE27 Gender: M Ticket Seller: TYREE : 1935 Requested By: Chicho Rae Order Number: [id number] Reading MD: Ronny Fitzgerald MD Measurements Intervals [place] Rate: 114 P: 81 ME: 191 QRS: -18 QRSD: 97 T: 94 QT: 315 QTc: 382 Interpretive Statements SINUS TACHYCARDIA WITH OCCASIONAL VENTRICULAR PREMATURE COMPLEXES ANTEROSEPTAL MYOCARDIAL INFARCTION [40+ ms Q WAVE IN V1-V4], OF INDETERMINATE AGE Electronically Signed On 11-19-2017 14:17:38 EST by Ronny Fitzgerald MD
[2017-11-19] MEDS ORDERED: *HR* OxyCODONE/APAP 10/325 TABLET PO PRN (14:33)
[2017-11-20] MEDS: methylPREDNISolone 125 MG/2 ML VIAL IVP SCH ×2 (00:27→08:10)
[2017-11-20 03:21] LABS: Basophils % 0.1 %; Eosinophils % 0.1 %; Hematocrit 32.2 % (37.5-50.1); Hemoglobin 10.4 g/dL (12.9-16.9); Immature Granulocytes % 0.5 % (0-4); Lymphocytes # 1.4 K/mcL (0.6-4.6); Lymphocytes % 17.9 %; Mean Corpuscular HGB Conc 32.3 g/dL (31.6-35.5); Mean Corpuscular Volume 92.8 fL (83.0-100.0); Mean Platelet Volume 12.2 fL (9.4-12.4); Monocytes # 0.5 K/mcL (0.0-1.3); Neutrophils # 5.8 K/mcL (1.6-8.9); Nucleated Red Blood Cells 0.3 /100 WBC (0); Platelet Count 104 K/mcL (140-400); Red Blood Count 3.47 M/mcL (4.19-5.50); Red Cell Distribution Width 13.2 % (11.5-14.5); Segmented Neutrophils % 75.4 %
[2017-11-20 03:35] LABS: Albumin 2.6 g/dL (3.5-5.7); Albumin/Globulin Ratio 0.8 (1.1-2.2); Bilirubin,Total 0.5 mg/dL (0.3-1.0); Calcium 8.6 mg/dL (8.6-10.3); Globulin 3.1 g/dL (2.4-3.5); Potassium 4.5 mEq/L (3.5-5.1); Total Protein 5.7 g/dL (6.4-8.9)
[2017-11-20] MEDS: Ipratropium/Albuterol Neb 3 ML IH SCH ×2 (03:49→10:35)
[2017-11-20 03:50] LABS: Platelet Estimate Decreased (Normal); Reactive Lymphocytes Present (Not Present)
[2017-11-20] MEDS: *HR* Heparin 5,000 UNIT/ML VIAL SQ SCH ×2 (06:09→17:23)
[2017-11-20] MEDS: Metoprolol XL (24 HR) Succ 25 MG TAB.ER.24H PO SCH (08:10)
[2017-11-20] MEDS: Nicotine 21 MG PATCH.TD24 TD SCH (08:10)
[2017-11-20] MEDS: Aspirin 81 MG TAB.CHEW PO SCH (08:10)
[2017-11-20] MEDS: Insulin LISPRO 300 UNITS/3 ML VIAL SQ SCH ×3 (08:11→17:24)
--- NOTE | 2017-11-20 13:31 | Discharge Summary ---
Date of Encounter: 11/21/17 Time of Encounter: 13:23 Hospital course: The patient is an 81 year old man w/PMH of Alzheimer's related dementia, diabetes controlled with oral antihyperglycemic medications, HTN, and renal disease presents from the ED with chief complaint of shortness of breath, dyspnea, and weakness over the past two weeks that became worse the morning of admission. Pts. son also reports difficulty w/swallowing. He was found to have acute bronchitis and an exacerbation of his COPD. He was treated with DuoNebs, Levaquin, Solumedrol and his home bronchodilators. His medications were renally dosed due to his CKD-IV. He also c/o dysphagia so a swallow evaluation was performed and it was determined that he requires nectar-thickened liquids. He was breathing comfortably and hemodynamically stable at the time of discharge. He will f/u with his PCP as needed. He was given oral Levaquin (7 days total) and a short course of prednisone at discharge. Time spent discussing smoking cessation with patient: more than 10 minutes - Time Spent with Patient Total time spent providing and/or coordinating discharge services: Greater than 30 minutes - Discharge Medications Prescriptions: Albuterol Sulfate [Albuterol Inhaler] 2 puff IH [id number] PRN 7 Days #1 inhaler PRN Reason: Shortness Of Breath/Wheezing Bisacodyl [Dulcolax] 5 mg PO DAILY PRN 7 Days #7 tablet PRN Reason: Constipation Docusate [Colace] 100 mg PO BID 7 Days #14 capsule Docusate [Colace] 100 mg PO BID 7 Days #14 capsule GuaiFENesin ER [Mucinex] 600 mg PO BID PRN 7 Days #14 tbbp.12hr PRN Reason: Congestion levoFLOXacin [Levaquin] 250 mg PO DAILY 6 Days #6 tablet Nicotine Patch [Nicoderm] 21 mg TD DAILY 7 Days #7 patch.td24 Nicotine Patch [Nicoderm] 21 mg TD DAILY 7 Days #7 patch.td24 predniSONE [PredniSONE] 10 mg PO DAILY 7 Days #7 tablet Home Medications: Aspirin 81 mg PO DAILY 08/04/15 [History] Atorvastatin [Lipitor] 20 mg PO HS 08/04/15 [History] GlipiZIDE [Glipizide Xl] 2.5 mg PO DAILY 08/04/15 [History] Metoprolol XL (24 HR) Succ [Toprol Xl] 25 mg PO DAILY 08/04/15 [History] OxyCODONE/APAP 10/325 [Percocet 10/325] 1 tab PO Q6H 08/04/15 [History] Albuterol Sulfate [Albuterol Inhaler] 2 puff IH [id number] PRN 7 Days #1 inhaler [Rx] Bisacodyl [Dulcolax] 5 mg PO DAILY PRN 7 Days #7 tablet 11/20/17 [Rx] Docusate [Colace] 100 mg PO BID 7 Days #14 capsule 11/20/17 [Rx] Docusate [Colace] 100 mg PO BID 7 Days #14 capsule 11/20/17 [Rx] GuaiFENesin ER [Mucinex] 600 mg PO BID PRN 7 Days #14 tbbp.12hr 11/20/17 [Rx] Nicotine Patch [Nicoderm] 21 mg TD DAILY 7 Days #7 patch.td24 11/20/17 [Rx] Nicotine Patch [Nicoderm] 21 mg TD DAILY 7 Days #7 patch.td24 11/20/17 [Rx] levoFLOXacin [Levaquin] 250 mg PO DAILY 6 Days #6 tablet 11/20/17 [Rx] predniSONE [PredniSONE] 10 mg PO DAILY 7 Days #7 tablet 11/20/17 [Rx] Allergies/Adverse Reactions: 3 Allergy/AdvReac Type Severity Reaction Status Date / Time No Known Allergies Allergy Verified 07/13/15 22:47 Date of admission: 11/18/17 19:11 Primary care physician: Ministerio Mancia MD Consults: 11/18/17 23:18 Consult to Speech Therapy [CONS] Routine Comment: Evaluate, develop and implement POC Reason for Consult: patient having difficulty with swallowing water, coughs very frequently with each sip of water Call Completed: No - Constitutional Vitals: Temp Pulse Resp BP Pulse Ox 97.7 F 70 15 153/83 97 11/20/17 06:51 11/20/17 06:51 11/20/17 06:51 11/20/17 06:51 11/20/17 06:51 General appearance: Present: cooperative, A&O X 2, mild distress (Respiratory), no acute distress, underweight, answers questions appropriately - Head Head exam: Present: atraumatic, normocephalic - Eye Eye exam: Present: PERRL, conjuntiva pink, sclera anicteric Pupils: Present: PERRL - Neck Neck exam general surgery: Present: supple, trachea midline. Absent: lymphadenopathy - Respiratory Respiratory exam: Present: CTAB. Absent: accessory muscle use, rales, rhonchi, wheezes - Cardiovascular Cardiovascular exam: Present: RRR, +S1, +S2. Absent: diastolic murmur, gallop, rubs, systolic murmur - GI/Abdominal GI/Abdominal exam: Present: normal bowel sounds, soft, no peritoneal signs. Absent: distended, tenderness - Extremities Exam Extremities exam: Present: warm, radial pulses palpable and symmetrical. Absent : calf tenderness, cyanotic, pedal edema - Neurological Exam Neurological exam: Present: CN II-XII intact, oriented X3, no focal deficits. Absent: pronater drift, facial droop, speech deficit - Psychiatric Psychiatric exam: Present: normal affect, normal mood. Absent: agitated, anxious - Skin Skin exam: Present: dry, intact - Patient Status Disposition: Home Health Service Condition: Fair - Discharge Instructions Instructions: Acute Bronchitis (DC), Acute Bronchitis (GEN), Sepsis (DC) Follow Up With: Ministerio Mancia MD [Primary Care Provider] - (office wants patient to call and make own appointment )
[2017-11-20 14:45] VITALS: BP 160/73
[2017-11-20] MEDS ORDERED: levoFLOXacin 250 MG TABLET PO SCH (15:15)
--- NOTE | 2017-11-20 16:17 | Physician Discharge Referral ---
Home Health/Hosp Referral Info Transfer to: Home Health Attending Provider: Altagracia Provider in Charge Post Discharge: PCP - Diagnosis (1) Bronchitis Priority: Primary Status: Acute (2) Acute exacerbation of chronic obstructive pulmonary disease (COPD) Priority: Primary Status: Acute - Respiratory Orders Smoking Cessation: Smoking cessation has been advised. For more information, call the [place] Tobacco Quit Line at 1-797-JHST-NOW. - Transfer Medications Prescriptions: Albuterol Sulfate [Albuterol Inhaler] 2 puff IH [id number] PRN 7 Days #1 inhaler PRN Reason: Shortness Of Breath/Wheezing Bisacodyl [Dulcolax] 5 mg PO DAILY PRN 7 Days #7 tablet PRN Reason: Constipation Docusate [Colace] 100 mg PO BID 7 Days #14 capsule Docusate [Colace] 100 mg PO BID 7 Days #14 capsule GuaiFENesin ER [Mucinex] 600 mg PO BID PRN 7 Days #14 tbbp.12hr PRN Reason: Congestion levoFLOXacin [Levaquin] 250 mg PO DAILY 6 Days #6 tablet Nicotine Patch [Nicoderm] 21 mg TD DAILY 7 Days #7 patch.td24 Nicotine Patch [Nicoderm] 21 mg TD DAILY 7 Days #7 patch.td24 predniSONE [PredniSONE] 10 mg PO DAILY 7 Days #7 tablet Home Medications: Aspirin 81 mg PO DAILY 08/04/15 [History] Atorvastatin [Lipitor] 20 mg PO HS 08/04/15 [History] GlipiZIDE [Glipizide Xl] 2.5 mg PO DAILY 08/04/15 [History] Metoprolol XL (24 HR) Succ [Toprol Xl] 25 mg PO DAILY 08/04/15 [History] OxyCODONE/APAP 10/325 [Percocet 10/325] 1 tab PO Q6H 08/04/15 [History] Albuterol Sulfate [Albuterol Inhaler] 2 puff IH [id number] PRN 7 Days #1 inhaler [Rx] Bisacodyl [Dulcolax] 5 mg PO DAILY PRN 7 Days #7 tablet 11/20/17 [Rx] Docusate [Colace] 100 mg PO BID 7 Days #14 capsule 11/20/17 [Rx] Docusate [Colace] 100 mg PO BID 7 Days #14 capsule 11/20/17 [Rx] GuaiFENesin ER [Mucinex] 600 mg PO BID PRN 7 Days #14 tbbp.12hr 11/20/17 [Rx] Nicotine Patch [Nicoderm] 21 mg TD DAILY 7 Days #7 patch.td24 11/20/17 [Rx] Nicotine Patch [Nicoderm] 21 mg TD DAILY 7 Days #7 patch.td24 11/20/17 [Rx] levoFLOXacin [Levaquin] 250 mg PO DAILY 6 Days #6 tablet 11/20/17 [Rx] predniSONE [PredniSONE] 10 mg PO DAILY 7 Days #7 tablet 11/20/17 [Rx] Allergies/Adverse Reactions: 3 Allergy/AdvReac Type Severity Reaction Status Date / Time No Known Allergies Allergy Verified 07/13/15 22:47 Certification: Further, I certify that my clinical findings support that this patient is homebound (i.e. absences from home require considerable and taxing effort and are for medical reasons or voodoo services or infrequently or short duration when for other reasons) because: Homebound Reason: Patient requires assistance of a person or device to safely leave home, Severity of cardiac or pulmonary status limits activity tolerance Attestation: My signature below is to certify that this patient is under my care and that I, or nurse practitioner, or a physician's language assistant working with me, has a face-to -face encounter with this patient.
--- NOTE | 2017-11-20 16:41 | Physician Discharge Referral ---
Home Health/Hosp Referral Info Transfer to: Home Health Attending Provider: rashaad Provider in Charge Post Discharge: PCP - Diagnosis (1) Bronchitis Priority: Primary Status: Acute (2) Acute exacerbation of chronic obstructive pulmonary disease (COPD) Priority: Primary Status: Acute - Respiratory Orders None Smoking Cessation: Smoking cessation has been advised. For more information, call the [place] Tobacco Quit Line at 2-468-SQVS-NOW. - Diet/Nutrition Diet/Nutrition Orders: No Concentrated Sweets ([place] thickened no straws) - Activity Activity Orders: Walker - Services Needed Following services are medically necessary services: Nursing, Home Health Aide - Transfer Medications Prescriptions: Albuterol Sulfate [Albuterol Inhaler] 2 puff IH [id number] PRN 7 Days #1 inhaler PRN Reason: Shortness Of Breath/Wheezing Bisacodyl [Dulcolax] 5 mg PO DAILY PRN 7 Days #7 tablet PRN Reason: Constipation Docusate [Colace] 100 mg PO BID 7 Days #14 capsule Docusate [Colace] 100 mg PO BID 7 Days #14 capsule GuaiFENesin ER [Mucinex] 600 mg PO BID PRN 7 Days #14 tbbp.12hr PRN Reason: Congestion levoFLOXacin [Levaquin] 250 mg PO DAILY 6 Days #6 tablet Nicotine Patch [Nicoderm] 21 mg TD DAILY 7 Days #7 patch.td24 Nicotine Patch [Nicoderm] 21 mg TD DAILY 7 Days #7 patch.td24 predniSONE [PredniSONE] 10 mg PO DAILY 7 Days #7 tablet Home Medications: Aspirin 81 mg PO DAILY 08/04/15 [History] Atorvastatin [Lipitor] 20 mg PO HS 08/04/15 [History] GlipiZIDE [Glipizide Xl] 2.5 mg PO DAILY 08/04/15 [History] Metoprolol XL (24 HR) Succ [Toprol Xl] 25 mg PO DAILY 08/04/15 [History] OxyCODONE/APAP 10/325 [Percocet 10/325] 1 tab PO Q6H 08/04/15 [History] Albuterol Sulfate [Albuterol Inhaler] 2 puff IH [id number] PRN 7 Days #1 inhaler [Rx] Bisacodyl [Dulcolax] 5 mg PO DAILY PRN 7 Days #7 tablet 03/07/18 [Rx] Docusate [Colace] 100 mg PO BID 7 Days #14 capsule 11/20/17 [Rx] Docusate [Colace] 100 mg PO BID 7 Days #14 capsule 11/20/17 [Rx] GuaiFENesin ER [Mucinex] 600 mg PO BID PRN 7 Days #14 tbbp.12hr 11/20/17 [Rx] Nicotine Patch [Nicoderm] 21 mg TD DAILY 7 Days #7 patch.td24 11/20/17 [Rx] Nicotine Patch [Nicoderm] 21 mg TD DAILY 7 Days #7 patch.td24 11/20/17 [Rx] levoFLOXacin [Levaquin] 250 mg PO DAILY 6 Days #6 tablet 11/20/17 [Rx] predniSONE [PredniSONE] 10 mg PO DAILY 7 Days #7 tablet 11/20/17 [Rx] Allergies/Adverse Reactions: 3 Allergy/AdvReac Type Severity Reaction Status Date / Time No Known Allergies Allergy Verified 07/13/15 22:47 Certification: Further, I certify that my clinical findings support that this patient is homebound (i.e. absences from home require considerable and taxing effort and are for medical reasons or cheondoism services or infrequently or short duration when for other reasons) because: Homebound Reason: Patient requires assistance of a person or device to safely leave home Attestation: My signature below is to certify that this patient is under my care and that I, or nurse practitioner, or a physician's assistant distribution manager working with me, has a face-to -face encounter with this patient.
[2017-11-20] MEDS ORDERED: Levofloxacin 500 MG/100 ML 500 MG/100 ML BAG IVPB SCH (17:00)
[2017-11-21] MEDS ORDERED: predniSONE 10 MG TABLET PO SCH (09:00)
== END 2017-11-20 18:33 | disposition home health service (06) ==
LOC: 2NENU 10:00 → EMEROO 10:00 → 2NENU 19:56
PROVIDERS: ADMIT Nurse Practitioner Family; ATTEND Student in an Organized Health Care Education/Training Program

== ENCOUNTER 2017-12-16 07:59 | Inpatient (IN) ==
[~2017-12-16 07:59] MED LIST: *HR* Midazolam HCl 2 MG/2 ML VIAL IV ONE; *HR* Norepinephrine 4 MG/4 ML VIAL IVC ONE; *HR* Vasopressin 20 UNIT/ML VIAL IVC ONE; Aminoglycoside Consult 1 EACH MC ONE
[2017-12-16] MEDS ORDERED: 0.9 % Sodium Chloride 500 ML IVC ONE ×3 (08:06→22:16)
--- NOTE | 2017-12-16 08:08 | Emergency Department Note ---
Disposition Clinical Impression: UTI (urinary tract infection), Hyperglycemia Disposition: Admitted As Inpatient Condition: Fair Referrals: Gavino,Ministerio Rosenbaum MD [Primary Care Provider] - Forms: ED Satisfaction Letter General Adult HPI - General Chief complaint: ED Altered Mental Status Stated complaint: AMS Time Seen by Provider: 12/16/17 08:05 Nursing Notes Reviewed: Yes Vital Signs Reviewed: Yes - Related Data Home Medications Medication Instructions Recorded Confirmed Aspirin 81 mg PO DAILY 08/04/15 11/18/17 Atorvastatin [Lipitor] 20 mg PO HS 08/04/15 11/18/17 GlipiZIDE [Glipizide Xl] 2.5 mg PO DAILY 08/04/15 11/18/17 Metoprolol XL (24 HR) Succ [Toprol 25 mg PO DAILY 08/04/15 11/18/17 Xl] OxyCODONE/APAP 10/325 [Percocet 1 tab PO Q6H 08/04/15 11/18/17 10/325] Previous Rx's Medication Instructions Recorded Albuterol Sulfate [Albuterol 2 puff IH [id number] PRN 7 Days #1 11/20/17 Inhaler] inhaler Bisacodyl [Dulcolax] 5 mg PO DAILY PRN 7 Days #7 tablet 11/20/17 Docusate [Colace] 100 mg PO BID 7 Days #14 capsule 11/20/17 Docusate [Colace] 100 mg PO BID 7 Days #14 capsule 11/20/17 GuaiFENesin ER [Mucinex] 600 mg PO BID PRN 7 Days #14 11/20/17 tbbp.12hr Nicotine Patch [Nicoderm] 21 mg TD DAILY 7 Days #7 patch.td24 11/20/17 Nicotine Patch [Nicoderm] 21 mg TD DAILY 7 Days #7 patch.td24 11/20/17 levoFLOXacin [Levaquin] 250 mg PO DAILY 6 Days #6 tablet 11/20/17 predniSONE [PredniSONE] 10 mg PO DAILY 7 Days #7 tablet 11/20/17 Allergies Allergy/AdvReac Type Severity Reaction Status Date / Time No Known Allergies Allergy Verified 07/13/15 22:47 Past Medical History - Past Medical History Medical history: Reports: dementia, diabetes, hypertension, renal disease Surgical history: Reports: carotid endarterectomy, cholecystectomy, other Psychiatric history: Reports: depression - Social History Smoking Status: Current every day smoker Smokeless Tobacco Status: No Alcohol use: Reports: rarely Drug use: Reports: none Course Vital Signs Temperature 97.3 F L 12/16/17 08:02 Pulse Rate 103 12/16/17 08:02 Respiratory Rate 20 12/16/17 08:02 Blood Pressure 100/59 12/16/17 08:02 O2 Sat by Pulse Oximetry 97 12/16/17 08:02 Temperature 97.3 F L 12/16/17 08:02 Pulse Rate 93 12/16/17 10:41 Respiratory Rate 20 12/16/17 10:41 Blood Pressure 99/78 12/16/17 10:41 O2 Sat by Pulse Oximetry 100 12/16/17 10:41 Oxygen Delivery Oxygen Delivery Nasal Cannula Medical Decision Making - MDM Narrative Medical decision making narrative: This documentation is done with the assistance of Dragon dictation. Despite efforts made to ensure accuracy, there may be inaccuracies in coupon collection clerk or spelling and typographical errors. I examined this patient and my medical decision-making was reviewed with the Resident Physician. I agree with the documented findings, disposition and treatment plan as described except to the extent set forth below. Patient seen and evaluated on arrival with Dr. Byrne and myself, I agree with her evaluation management plan supervise care the patient's stay. Patient lives at home with family. Altered mental status since the prior evening around 8:00. Recent visit to the hospital about a month ago for the same. No focal deficits this time. He does have a history of dementia. Waiting to speak with family. We will get a CT of his head check lab work urinalysis and reassess. The last time looks like he had COPD social get a chest x-ray also. He does not meet stroke alert criteria. Chest X-Ray 12/16/17 08:05 IMPRESSION: Patchy interstitial opacity in the right perihilar region and right lung base with peribronchial wall thickening, nonspecific but may may be related to infectious or inflammatory process. No focal consolidation. D/ / Basia Brizuela MD / Basia Brizuela MD Interpreting Provider: Basia Brizuela MD Head CT 12/16/17 08:06 IMPRESSION: 1. No acute intracranial abnormality. 2. Cerebral and cerebellar parenchymal volume loss with chronic microvascular white matter ischemic disease. D/ / Kristofer Schwarz MD / Kristofer Schwarz MD Interpreting Provider: Kristofer Schwarz MD Cervical Spine CT 12/16/17 08:07 IMPRESSION: Motion degraded study. No acute abnormality of the cervical spine. D/ / Randy Brizuela MD / Randy Brizuela MD Interpreting Provider: Randy Brizuela MD 0900 hrs.: Lab called with critical value with a troponin of 0.22. Patient's had chest pain. And his glucoses over 600. With the current chest x-ray and previous history of possible pneumonia and on Levaquin we will start him on healthcare acquired pneumonia precautions with Levaquin and Zosyn and vancomycin. 1100 hrs.: Patient was started on antibiotics. Go ahead and admit. Insulin is started also. Patient's in agreement with this plan. Hospitalist was paged. - Lab Data Result diagrams: 12/16/17 08:21 12/16/17 08:21 Lab Results 12/16/17 12/16/17 12/16/17 Range/Units 08:16 08:16 08:21 WBC 13.7 H (4.3-11.1) K/mcL RBC 4.13 L (4.19-5.50) M/mcL Hgb 12.5 L (12.9-16.9) g/dL Hct 39.7 (37.5-50.1) % MCV 96.1 (83.0-100.0) fL MCH 30.3 (28.0-33.3) pg MCHC 31.5 L (31.6-35.5) g/dL RDW 13.7 (11.5-14.5) % Plt Count 221 (140-400) K/mcL MPV 11.7 (9.4-12.4) fL Seg Neutrophils % 84.0 % Lymphocytes % 8.0 % Monocytes % 8.0 % Neutrophils # 11.5 H (1.6-8.9) K/mcL Lymphocytes # 1.1 (0.6-4.6) K/mcL Monocytes # 1.1 (0.0-1.3) K/mcL Platelet Estimate Normal (Normal) Immature Plt Fraction 4.1 (1.1-6.1) % PT (9.4-12.1) Seconds INR APTT (26.0-36.0) Seconds VBG pH (7.32-7.42) pH Units VBG pCO2 (41-51) mmHg VBG pO2 (25-50) mmHg VBG HCO3 (21-27) mEq/L Sodium (136-145) mEq/L Potassium (3.5-5.1) mEq/L Chloride (98-107) mEq/L Carbon Dioxide (23-29) mEq/L BUN (8-23) mg/dL Creatinine (0.70-1.30) mg/dL Est GFR ( Amer) (> 60) Est GFR (Non-Af Amer) (> 60) BUN/Creatinine Ratio (6-26) Glucose (70-105) mg/dL Calculated Osmolality (280-300) Lactic Acid (0.5-2.2) mmol/L Calcium (8.6-10.3) mg/dL Phosphorus (2.7-4.5) mg/dL Magnesium (1.6-2.6) mg/dL Total Bilirubin (0.3-1.0) mg/dL Direct Bilirubin (0.0-0.2) mg/dL Indirect Bilirubin (0.0-1.2) mg/dL AST (13-39) Units/L ALT (7-52) Units/L Alkaline Phosphatase (34-104) Units/L Creatine Kinase (30-223) Units/L Troponin I (< 0.04) ng/mL Serum Total Protein (6.4-8.9) g/dL Albumin (3.5-5.7) g/dL Globulin (2.4-3.5) g/dL Albumin/Globulin Ratio (1.1-2.2) Lipase (11-82) Units/L Beta-Hydroxybutyric Acd (0.02-0.27) mmol/L Urine Color Yellow (Yellow) Urine Clarity Turbid A (Clear) Urine pH 5.0 (5.0-8.0) pH Units Ur Specific [place] 1.024 (1.010-1.025) Urine Protein 100 H (Neg-Trace) mg/dL Urine Glucose (UA) >=1000 H (Normal) mg/dL Urine Ketones Negative (Negative) mg/dL Urine Blood Moderate H (Negative) Urine Nitrite Negative (Negative) Urine Bilirubin Negative (Negative) Urine Urobilinogen Normal (Normal) mg/dL Ur Leukocyte Esterase Moderate H (Negative) Urine Microscopic RBC 15-30 H (0-3) per hpf Urine Microscopic WBC 30-50 H (0-3) per hpf Ur Squamous Epith Cells Few (None-Few) per lpf Urine Bacteria Many H (None-Few) per hpf Ur Culture Indicated? YES A (NO) Urine Opiates Screen Negative (Otzooj=069) ng/mL Ur Barbiturates Screen Negative (Ckigsn=025) ng/mL Ur Phencyclidine Scrn Negative (Cutoff=25) ng/mL Ur Amphetamines Screen Negative (Lmicnm=6956) ng/mL U Benzodiazepines Scrn Negative (Aczrli=162) ng/mL Urine Cocaine Screen Negative (Cutoff= 300) ng/mL U Marijuana (THC) Screen Negative (Cutoff = 50) ng/mL Ethyl Alcohol (Less than 10) mg/dL 12/16/17 12/16/17 12/16/17 Range/Units 08:21 08:21 08:21 WBC (4.3-11.1) K/mcL RBC (4.19-5.50) M/mcL Hgb (12.9-16.9) g/dL Hct (37.5-50.1) % MCV (83.0-100.0) fL MCH (28.0-33.3) pg MCHC (31.6-35.5) g/dL RDW (11.5-14.5) % Plt Count (140-400) K/mcL MPV (9.4-12.4) fL Seg Neutrophils % % Lymphocytes % % Monocytes % % Neutrophils # (1.6-8.9) K/mcL Lymphocytes # (0.6-4.6) K/mcL Monocytes # (0.0-1.3) K/mcL Platelet Estimate (Normal) Immature Plt Fraction (1.1-6.1) % PT 12.2 H (9.4-12.1) Seconds INR 1.1 APTT 25.5 L (26.0-36.0) Seconds VBG pH (7.32-7.42) pH Units VBG pCO2 (41-51) mmHg VBG pO2 (25-50) mmHg VBG HCO3 (21-27) mEq/L Sodium 143 (136-145) mEq/L Potassium 5.7 H (3.5-5.1) mEq/L Chloride 108 H (98-107) mEq/L Carbon Dioxide 23 (23-29) mEq/L BUN 93 H (8-23) mg/dL Creatinine 4.49 H (0.70-1.30) mg/dL Est GFR ( Amer) 15 L (> 60) Est GFR (Non-Af Amer) 13 L (> 60) BUN/Creatinine Ratio 21 (6-26) Glucose 622 H* (70-105) mg/dL Calculated Osmolality 354 H (280-300) Lactic Acid 2.6 H (0.5-2.2) mmol/L Calcium 9.8 (8.6-10.3) mg/dL Phosphorus (2.7-4.5) mg/dL Magnesium (1.6-2.6) mg/dL Total Bilirubin 0.8 (0.3-1.0) mg/dL Direct Bilirubin 0.3 H (0.0-0.2) mg/dL Indirect Bilirubin 0.5 (0.0-1.2) mg/dL AST 22 (13-39) Units/L ALT 34 (7-52) Units/L Alkaline Phosphatase 166 H (34-104) Units/L Creatine Kinase 28 L (30-223) Units/L Troponin I 0.22 H* (< 0.04) ng/mL Serum Total Protein 7.4 (6.4-8.9) g/dL Albumin 3.1 L (3.5-5.7) g/dL Globulin 4.3 H (2.4-3.5) g/dL Albumin/Globulin Ratio 0.7 L (1.1-2.2) Lipase 16 (11-82) Units/L Beta-Hydroxybutyric Acd (0.02-0.27) mmol/L Urine Color (Yellow) Urine Clarity (Clear) Urine pH (5.0-8.0) pH Units Ur Specific [place] (1.010-1.025) Urine Protein (Neg-Trace) mg/dL Urine Glucose (UA) (Normal) mg/dL Urine Ketones (Negative) mg/dL Urine Blood (Negative) Urine Nitrite (Negative) Urine Bilirubin (Negative) Urine Urobilinogen (Normal) mg/dL Ur Leukocyte Esterase (Negative) Urine Microscopic RBC (0-3) per hpf Urine Microscopic WBC (0-3) per hpf Ur Squamous Epith Cells (None-Few) per lpf Urine Bacteria (None-Few) per hpf Ur Culture Indicated? (NO) Urine Opiates Screen (Oufksd=048) ng/mL Ur Barbiturates Screen (Lbvtdd=106) ng/mL Ur Phencyclidine Scrn (Cutoff=25) ng/mL Ur Amphetamines Screen (Dpsmsb=0373) ng/mL U Benzodiazepines Scrn (Pinluw=771) ng/mL Urine Cocaine Screen (Cutoff= 300) ng/mL U Marijuana (THC) Screen (Cutoff = 50) ng/mL Ethyl Alcohol < 10 (Less than 10) mg/dL 12/16/17 12/16/17 12/16/17 Range/Units 08:21 08:21 09:39 WBC (4.3-11.1) K/mcL RBC (4.19-5.50) M/mcL Hgb (12.9-16.9) g/dL Hct (37.5-50.1) % MCV (83.0-100.0) fL MCH (28.0-33.3) pg MCHC (31.6-35.5) g/dL RDW (11.5-14.5) % Plt Count (140-400) K/mcL MPV (9.4-12.4) fL Seg Neutrophils % % Lymphocytes % % Monocytes % % Neutrophils # (1.6-8.9) K/mcL Lymphocytes # (0.6-4.6) K/mcL Monocytes # (0.0-1.3) K/mcL Platelet Estimate (Normal) Immature Plt Fraction (1.1-6.1) % PT (9.4-12.1) Seconds INR APTT (26.0-36.0) Seconds VBG pH 7.29 L (7.32-7.42) pH Units VBG pCO2 52 H (41-51) mmHg VBG pO2 35 (25-50) mmHg VBG HCO3 25 (21-27) mEq/L Sodium (136-145) mEq/L Potassium (3.5-5.1) mEq/L Chloride (98-107) mEq/L Carbon Dioxide (23-29) mEq/L BUN (8-23) mg/dL Creatinine (0.70-1.30) mg/dL Est GFR ( Amer) (> 60) Est GFR (Non-Af Amer) (> 60) BUN/Creatinine Ratio (6-26) Glucose (70-105) mg/dL Calculated Osmolality (280-300) Lactic Acid (0.5-2.2) mmol/L Calcium (8.6-10.3) mg/dL Phosphorus 4.5 (2.7-4.5) mg/dL Magnesium 2.4 (1.6-2.6) mg/dL Total Bilirubin (0.3-1.0) mg/dL Direct Bilirubin (0.0-0.2) mg/dL Indirect Bilirubin (0.0-1.2) mg/dL AST (13-39) Units/L ALT (7-52) Units/L Alkaline Phosphatase (34-104) Units/L Creatine Kinase (30-223) Units/L Troponin I (< 0.04) ng/mL Serum Total Protein (6.4-8.9) g/dL Albumin (3.5-5.7) g/dL Globulin (2.4-3.5) g/dL Albumin/Globulin Ratio (1.1-2.2) Lipase (11-82) Units/L Beta-Hydroxybutyric Acd 0.67 H (0.02-0.27) mmol/L Urine Color (Yellow) Urine Clarity (Clear) Urine pH (5.0-8.0) pH Units Ur Specific [place] (1.010-1.025) Urine Protein (Neg-Trace) mg/dL Urine Glucose (UA) (Normal) mg/dL Urine Ketones (Negative) mg/dL Urine Blood (Negative) Urine Nitrite (Negative) Urine Bilirubin (Negative) Urine Urobilinogen (Normal) mg/dL Ur Leukocyte Esterase (Negative) Urine Microscopic RBC (0-3) per hpf Urine Microscopic WBC (0-3) per hpf Ur Squamous Epith Cells (None-Few) per lpf Urine Bacteria (None-Few) per hpf Ur Culture Indicated? (NO) Urine Opiates Screen (Ozpwiq=485) ng/mL Ur Barbiturates Screen (Xdgltw=477) ng/mL Ur Phencyclidine Scrn (Cutoff=25) ng/mL Ur Amphetamines Screen (Ykxiwg=3385) ng/mL U Benzodiazepines Scrn (Yzxuej=657) ng/mL Urine Cocaine Screen (Cutoff= 300) ng/mL U Marijuana (THC) Screen (Cutoff = 50) ng/mL Ethyl Alcohol (Less than 10) mg/dL Critical Care Time Critical Care Time: Yes Total Critical Care Time: 40 Attestation: Excluding any separately billable procedures
[2017-12-16] MEDS ORDERED: 0.9 % Sodium Chloride 1,000 ML IVC ONE ×2 (08:11→12:07)
--- NOTE | 2017-12-16 08:11 | Emergency Department Note ---
Disposition Clinical Impression: Hyperglycemia UTI (urinary tract infection) Qualifiers: Urinary tract infection type: acute cystitis Hematuria presence: without hematuria Qualified Code(s): N30.00 - Acute cystitis without hematuria Pneumonia Qualifiers: Pneumonia type: due to unspecified organism Laterality: unspecified laterality Lung location: unspecified part of lung Qualified Code(s): J18.9 - Pneumonia, unspecified organism Disposition: Admitted As Inpatient Condition: Fair Time of Disposition: 14:08 General Adult HPI - General Chief complaint: ED Altered Mental Status Stated complaint: AMS Time Seen by Provider: 12/16/17 08:05 Nursing Notes Reviewed: Yes Vital Signs Reviewed: Yes - History of Present Illness HPI Narrative: Patient with a history of dementia is more confused than normal per the family. Last known well was last night however he was demented at that time. Has been admitted for this previously. No lateralizing deficits. - Related Data Home Medications Medication Instructions Recorded Confirmed Aspirin 81 mg PO DAILY 08/04/15 11/18/17 Atorvastatin [Lipitor] 20 mg PO HS 08/04/15 11/18/17 GlipiZIDE [Glipizide Xl] 2.5 mg PO DAILY 08/04/15 11/18/17 Metoprolol XL (24 HR) Succ [Toprol 25 mg PO DAILY 08/04/15 11/18/17 Xl] OxyCODONE/APAP 10/325 [Percocet 1 tab PO Q6H 08/04/15 11/18/17 10/325] Ipratropium/Albuterol Neb [Duoneb] 3 ml IH Q6HR PRN 12/16/17 12/16/17 Previous Rx's Medication Instructions Recorded Albuterol Sulfate [Albuterol 2 puff IH [id number] PRN 7 Days #1 11/20/17 Inhaler] inhaler Docusate [Colace] 100 mg PO BID 7 Days #14 capsule 11/20/17 Allergies Allergy/AdvReac Type Severity Reaction Status Date / Time No Known Allergies Allergy Verified 07/13/15 22:47 Limitations: ROS unobtainable due to patients medical condition Past Medical History - Past Medical History Attestation: Yes The following information was validated with the patient. Source: patient Medical history: Reports: dementia, diabetes, hypertension, renal disease Surgical history: Reports: carotid endarterectomy, cholecystectomy, other Psychiatric history: Reports: depression - Social History Smoking Status: Current every day smoker Smokeless Tobacco Status: No Alcohol use: Reports: rarely Drug use: Reports: none Physical Exam - General Limitations: altered mental status General appearance: other (confused) - Head Head exam: atraumatic, normocephalic, normal inspection - Eye Eye exam: Present: normal appearance, PERRL, EOMI - ENT ENT exam: normal exam, normal oropharynx, mucous membranes dry - Neck Neck exam: Present: normal inspection, trachea midline - Chest Chest inspection: Present: normal inspection, symmetric chest wall rise. Absent : rash - Respiratory Respiratory exam: Present: normal lung sounds bilaterally. Absent: respiratory distress, wheezes, accessory muscle use - Cardiovascular Cardiovascular exam: Present: normal rhythm, tachycardia, normal heart sounds - Abdominal Exam Abdominal exam: Present: soft. Absent: distention, guarding, rebound, rigidity , organomegaly - Extremities Exam Extremities exam: Present: normal inspection. Absent: normal capillary refill, pedal edema - Neurological Exam Neurological exam: Present: alert, oriented X3 - Skin Skin exam: Present: warm, dry, intact, normal color. Absent: rash Course Course Narrative: Male patient brought in by EMS for altered mental status. Patient was at home with his son. The son reported to EMS that the patient is not acting himself. He does have a history of dementia. States that he is more confused than normal. They report that the son states last night he was acting his normal. He was seen at this facility approximately a month ago. He has sustained a ground-level fall since his last visit here. Patient is confused at this time. He is verbal however not making inappropriate comments. He is not opening his eyes on command. However if you do open his eyes will start to look around. Lung sounds are clear heart tones are normal. He does appear cachectic. Patient's glucose was high EMS. He has greater than 500 here. We will start an IV on the patient given a fluid bolus. We will check of beta hydroxybutyric acid. We will also get a CT of patient's head. Basic lab workup on patient. I anticipate admission. - Reevaluation(s) Reevaluation #1: Patient reassessed. Son is at bedside. He states that he was hyperglycemic right is here last time however he was not sent home on insulin. He does take glipizide. His glucose is elevated while here. However his anion gap is closed. We will start patient on an insulin drip. His beta hydroxybutyrate acid is elevated. We will admit patient for altered mental status hyperglycemia UTI and pneumonia with sepsis. He was initially tachycardic when he got here. He received fluid. He responded well to this. No episodes of hypo-tension. We have started him on antibiotics. Time: 10:39 - Consultations Consultation #1: Dr FULLER accepted Pt in stable condition. Time: 10:56 Vital Signs Temperature 97.3 F L 12/16/17 08:02 Pulse Rate 103 12/16/17 08:02 Respiratory Rate 20 12/16/17 08:02 Blood Pressure 100/59 12/16/17 08:02 O2 Sat by Pulse Oximetry 97 12/16/17 08:02 Temperature 98.4 F 12/16/17 12:13 Pulse Rate 120 12/16/17 12:54 Respiratory Rate 24 12/16/17 13:19 Blood Pressure 81/70 12/16/17 13:19 O2 Sat by Pulse Oximetry 100 12/16/17 13:19 Oxygen Delivery Oxygen Delivery Nasal Cannula Medical Decision Making - Medical Records Medical records reviewed: Yes I reviewed the patient's medical records. - Lab Data Lab results reviewed: Yes I reviewed the patient's lab results. Result diagrams: 12/16/17 08:21 12/16/17 12:53 Lab Results 12/16/17 12/16/17 12/16/17 Range/Units 08:16 08:16 08:21 WBC 13.7 H (4.3-11.1) K/mcL RBC 4.13 L (4.19-5.50) M/mcL Hgb 12.5 L (12.9-16.9) g/dL Hct 39.7 (37.5-50.1) % MCV 96.1 (83.0-100.0) fL MCH 30.3 (28.0-33.3) pg MCHC 31.5 L (31.6-35.5) g/dL RDW 13.7 (11.5-14.5) % Plt Count 221 (140-400) K/mcL MPV 11.7 (9.4-12.4) fL Seg Neutrophils % 84.0 % Lymphocytes % 8.0 % Monocytes % 8.0 % Neutrophils # 11.5 H (1.6-8.9) K/mcL Lymphocytes # 1.1 (0.6-4.6) K/mcL Monocytes # 1.1 (0.0-1.3) K/mcL Platelet Estimate Normal (Normal) Immature Plt Fraction 4.1 (1.1-6.1) % PT (9.4-12.1) Seconds INR APTT (26.0-36.0) Seconds Sample Site ABG pH (7.32-7.45) pH Units ABG pCO2 (35-45) mmHg ABG pO2 (85-104) mmHg ABG HCO3 (21-27) mEq/L ABG Total CO2 (20-26) mEq/L ABG O2 Saturation (95-98) % ABG Base Excess (-2 to 3) mEq/L Gurjit Test VBG pH (7.32-7.42) pH Units VBG pCO2 (41-51) mmHg VBG pO2 (25-50) mmHg VBG HCO3 (21-27) mEq/L Respiration Rate O2 Delivery Device Blood Gas Modality Inspired O2 (1-15=lpm [id number]=%) Tidal Volume cc PEEP cm H2O Sodium (136-145) mEq/L Potassium (3.5-5.1) mEq/L Chloride (98-107) mEq/L Carbon Dioxide (23-29) mEq/L BUN (8-23) mg/dL Creatinine (0.70-1.30) mg/dL Est GFR ( Amer) (> 60) Est GFR (Non-Af Amer) (> 60) BUN/Creatinine Ratio (6-26) Glucose (70-105) mg/dL Calculated Osmolality (280-300) Lactic Acid (0.5-2.2) mmol/L Calcium (8.6-10.3) mg/dL Phosphorus (2.7-4.5) mg/dL Magnesium (1.6-2.6) mg/dL Total Bilirubin (0.3-1.0) mg/dL Direct Bilirubin (0.0-0.2) mg/dL Indirect Bilirubin (0.0-1.2) mg/dL AST (13-39) Units/L ALT (7-52) Units/L Alkaline Phosphatase (34-104) Units/L Creatine Kinase (30-223) Units/L Troponin I (< 0.04) ng/mL Serum Total Protein (6.4-8.9) g/dL Albumin (3.5-5.7) g/dL Globulin (2.4-3.5) g/dL Albumin/Globulin Ratio (1.1-2.2) Triglycerides (< 150) mg/dL Lipase (11-82) Units/L Beta-Hydroxybutyric Acd (0.02-0.27) mmol/L Urine Color Yellow (Yellow) Urine Clarity Turbid A (Clear) Urine pH 5.0 (5.0-8.0) pH Units Ur Specific [place] 1.024 (1.010-1.025) Urine Protein 100 H (Neg-Trace) mg/dL Urine Glucose (UA) >=1000 H (Normal) mg/dL Urine Ketones Negative (Negative) mg/dL Urine Blood Moderate H (Negative) Urine Nitrite Negative (Negative) Urine Bilirubin Negative (Negative) Urine Urobilinogen Normal (Normal) mg/dL Ur Leukocyte Esterase Moderate H (Negative) Urine Microscopic RBC 15-30 H (0-3) per hpf Urine Microscopic WBC 30-50 H (0-3) per hpf Ur Squamous Epith Cells Few (None-Few) per lpf Urine Bacteria Many H (None-Few) per hpf Ur Culture Indicated? YES A (NO) Urine Opiates Screen Negative (Lzidnp=464) ng/mL Ur Barbiturates Screen Negative (Rllduh=408) ng/mL Ur Phencyclidine Scrn Negative (Cutoff=25) ng/mL Ur Amphetamines Screen Negative (Grmrgu=6478) ng/mL U Benzodiazepines Scrn Negative (Gtzymj=724) ng/mL Urine Cocaine Screen Negative (Cutoff= 300) ng/mL U Marijuana (THC) Screen Negative (Cutoff = 50) ng/mL Ethyl Alcohol (Less than 10) mg/dL Specimen Rejected 12/16/17 12/16/17 12/16/17 Range/Units 08:21 08:21 08:21 WBC (4.3-11.1) K/mcL RBC (4.19-5.50) M/mcL Hgb (12.9-16.9) g/dL Hct (37.5-50.1) % MCV (83.0-100.0) fL MCH (28.0-33.3) pg MCHC (31.6-35.5) g/dL RDW (11.5-14.5) % Plt Count (140-400) K/mcL MPV (9.4-12.4) fL Seg Neutrophils % % Lymphocytes % % Monocytes % % Neutrophils # (1.6-8.9) K/mcL Lymphocytes # (0.6-4.6) K/mcL Monocytes # (0.0-1.3) K/mcL Platelet Estimate (Normal) Immature Plt Fraction (1.1-6.1) % PT 12.2 H (9.4-12.1) Seconds INR 1.1 APTT 25.5 L (26.0-36.0) Seconds Sample Site ABG pH (7.32-7.45) pH Units ABG pCO2 (35-45) mmHg ABG pO2 (85-104) mmHg ABG HCO3 (21-27) mEq/L ABG Total CO2 (20-26) mEq/L ABG O2 Saturation (95-98) % ABG Base Excess (-2 to 3) mEq/L Gurjit Test VBG pH (7.32-7.42) pH Units VBG pCO2 (41-51) mmHg VBG pO2 (25-50) mmHg VBG HCO3 (21-27) mEq/L Respiration Rate O2 Delivery Device Blood Gas Modality Inspired O2 (1-15=lpm gi07-289=%) Tidal Volume cc PEEP cm H2O Sodium 143 (136-145) mEq/L Potassium 5.7 H (3.5-5.1) mEq/L Chloride 108 H (98-107) mEq/L Carbon Dioxide 23 (23-29) mEq/L BUN 93 H (8-23) mg/dL Creatinine 4.49 H (0.70-1.30) mg/dL Est GFR ( Amer) 15 L (> 60) Est GFR (Non-Af Amer) 13 L (> 60) BUN/Creatinine Ratio 21 (6-26) Glucose 622 H* (70-105) mg/dL Calculated Osmolality 354 H (280-300) Lactic Acid 2.6 H (0.5-2.2) mmol/L Calcium 9.8 (8.6-10.3) mg/dL Phosphorus (2.7-4.5) mg/dL Magnesium (1.6-2.6) mg/dL Total Bilirubin 0.8 (0.3-1.0) mg/dL Direct Bilirubin 0.3 H (0.0-0.2) mg/dL Indirect Bilirubin 0.5 (0.0-1.2) mg/dL AST 22 (13-39) Units/L ALT 34 (7-52) Units/L Alkaline Phosphatase 166 H (34-104) Units/L Creatine Kinase 28 L (30-223) Units/L Troponin I 0.22 H* (< 0.04) ng/mL Serum Total Protein 7.4 (6.4-8.9) g/dL Albumin 3.1 L (3.5-5.7) g/dL Globulin 4.3 H (2.4-3.5) g/dL Albumin/Globulin Ratio 0.7 L (1.1-2.2) Triglycerides (< 150) mg/dL Lipase 16 (11-82) Units/L Beta-Hydroxybutyric Acd (0.02-0.27) mmol/L Urine Color (Yellow) Urine Clarity (Clear) Urine pH (5.0-8.0) pH Units Ur Specific [place] (1.010-1.025) Urine Protein (Neg-Trace) mg/dL Urine Glucose (UA) (Normal) mg/dL Urine Ketones (Negative) mg/dL Urine Blood (Negative) Urine Nitrite (Negative) Urine Bilirubin (Negative) Urine Urobilinogen (Normal) mg/dL Ur Leukocyte Esterase (Negative) Urine Microscopic RBC (0-3) per hpf Urine Microscopic WBC (0-3) per hpf Ur Squamous Epith Cells (None-Few) per lpf Urine Bacteria (None-Few) per hpf Ur Culture Indicated? (NO) Urine Opiates Screen (Hmhpuk=474) ng/mL Ur Barbiturates Screen (Wljcre=512) ng/mL Ur Phencyclidine Scrn (Cutoff=25) ng/mL Ur Amphetamines Screen (Raxvdw=1338) ng/mL U Benzodiazepines Scrn (Qtzqbp=741) ng/mL Urine Cocaine Screen (Cutoff= 300) ng/mL U Marijuana (THC) Screen (Cutoff = 50) ng/mL Ethyl Alcohol < 10 (Less than 10) mg/dL Specimen Rejected 12/16/17 12/16/17 12/16/17 Range/Units 08:21 08:21 09:39 WBC (4.3-11.1) K/mcL RBC (4.19-5.50) M/mcL Hgb (12.9-16.9) g/dL Hct (37.5-50.1) % MCV (83.0-100.0) fL MCH (28.0-33.3) pg MCHC (31.6-35.5) g/dL RDW (11.5-14.5) % Plt Count (140-400) K/mcL MPV (9.4-12.4) fL Seg Neutrophils % % Lymphocytes % % Monocytes % % Neutrophils # (1.6-8.9) K/mcL Lymphocytes # (0.6-4.6) K/mcL Monocytes # (0.0-1.3) K/mcL Platelet Estimate (Normal) Immature Plt Fraction (1.1-6.1) % PT (9.4-12.1) Seconds INR APTT (26.0-36.0) Seconds Sample Site ABG pH (7.32-7.45) pH Units ABG pCO2 (35-45) mmHg ABG pO2 (85-104) mmHg ABG HCO3 (21-27) mEq/L ABG Total CO2 (20-26) mEq/L ABG O2 Saturation (95-98) % ABG Base Excess (-2 to 3) mEq/L Gurjit Test VBG pH 7.29 L (7.32-7.42) pH Units VBG pCO2 52 H (41-51) mmHg VBG pO2 35 (25-50) mmHg VBG HCO3 25 (21-27) mEq/L Respiration Rate O2 Delivery Device Blood Gas Modality Inspired O2 (1-15=lpm of16-871=%) Tidal Volume cc PEEP cm H2O Sodium (136-145) mEq/L Potassium (3.5-5.1) mEq/L Chloride (98-107) mEq/L Carbon Dioxide (23-29) mEq/L BUN (8-23) mg/dL Creatinine (0.70-1.30) mg/dL Est GFR ( Amer) (> 60) Est GFR (Non-Af Amer) (> 60) BUN/Creatinine Ratio (6-26) Glucose (70-105) mg/dL Calculated Osmolality (280-300) Lactic Acid (0.5-2.2) mmol/L Calcium (8.6-10.3) mg/dL Phosphorus 4.5 (2.7-4.5) mg/dL Magnesium 2.4 (1.6-2.6) mg/dL Total Bilirubin (0.3-1.0) mg/dL Direct Bilirubin (0.0-0.2) mg/dL Indirect Bilirubin (0.0-1.2) mg/dL AST (13-39) Units/L ALT (7-52) Units/L Alkaline Phosphatase (34-104) Units/L Creatine Kinase (30-223) Units/L Troponin I (< 0.04) ng/mL Serum Total Protein (6.4-8.9) g/dL Albumin (3.5-5.7) g/dL Globulin (2.4-3.5) g/dL Albumin/Globulin Ratio (1.1-2.2) Triglycerides (< 150) mg/dL Lipase (11-82) Units/L Beta-Hydroxybutyric Acd 0.67 H (0.02-0.27) mmol/L Urine Color (Yellow) Urine Clarity (Clear) Urine pH (5.0-8.0) pH Units Ur Specific [place] (1.010-1.025) Urine Protein (Neg-Trace) mg/dL Urine Glucose (UA) (Normal) mg/dL Urine Ketones (Negative) mg/dL Urine Blood (Negative) Urine Nitrite (Negative) Urine Bilirubin (Negative) Urine Urobilinogen (Normal) mg/dL Ur Leukocyte Esterase (Negative) Urine Microscopic RBC (0-3) per hpf Urine Microscopic WBC (0-3) per hpf Ur Squamous Epith Cells (None-Few) per lpf Urine Bacteria (None-Few) per hpf Ur Culture Indicated? (NO) Urine Opiates Screen (Wuufal=692) ng/mL Ur Barbiturates Screen (Okgjgw=632) ng/mL Ur Phencyclidine Scrn (Cutoff=25) ng/mL Ur Amphetamines Screen (Nhzppa=7377) ng/mL U Benzodiazepines Scrn (Tozmzw=226) ng/mL Urine Cocaine Screen (Cutoff= 300) ng/mL U Marijuana (THC) Screen (Cutoff = 50) ng/mL Ethyl Alcohol (Less than 10) mg/dL Specimen Rejected 12/16/17 12/16/17 12/16/17 Range/Units 12:34 12:36 12:53 WBC (4.3-11.1) K/mcL RBC (4.19-5.50) M/mcL Hgb (12.9-16.9) g/dL Hct (37.5-50.1) % MCV (83.0-100.0) fL MCH (28.0-33.3) pg MCHC (31.6-35.5) g/dL RDW (11.5-14.5) % Plt Count (140-400) K/mcL MPV (9.4-12.4) fL Seg Neutrophils % % Lymphocytes % % Monocytes % % Neutrophils # (1.6-8.9) K/mcL Lymphocytes # (0.6-4.6) K/mcL Monocytes # (0.0-1.3) K/mcL Platelet Estimate (Normal) Immature Plt Fraction (1.1-6.1) % PT (9.4-12.1) Seconds INR APTT (26.0-36.0) Seconds Sample Site R Radial ABG pH 7.38 (7.32-7.45) pH Units ABG pCO2 25 L (35-45) mmHg ABG pO2 229 H (85-104) mmHg ABG HCO3 15 L (21-27) mEq/L ABG Total CO2 15 L (20-26) mEq/L ABG O2 Saturation 100 H (95-98) % ABG Base Excess -9 L (-2 to 3) mEq/L Gurjit Test Positive VBG pH (7.32-7.42) pH Units VBG pCO2 (41-51) mmHg VBG pO2 (25-50) mmHg VBG HCO3 (21-27) mEq/L Respiration Rate 12 O2 Delivery Device BiPAP Blood Gas Modality NIV Inspired O2 60.0 (1-15=lpm in27-138=%) Tidal Volume 450 cc PEEP 8 cm H2O Sodium 151 H (136-145) mEq/L Potassium 5.3 H (3.5-5.1) mEq/L Chloride 122 H (98-107) mEq/L Carbon Dioxide 13 L (23-29) mEq/L BUN 90 H (8-23) mg/dL Creatinine 4.09 H (0.70-1.30) mg/dL Est GFR ( Amer) 17 L (> 60) Est GFR (Non-Af Amer) 14 L (> 60) BUN/Creatinine Ratio 22 (6-26) Glucose 219 H (70-105) mg/dL Calculated Osmolality 346 H (280-300) Lactic Acid 8.2 H* (0.5-2.2) mmol/L Calcium 8.4 L (8.6-10.3) mg/dL Phosphorus (2.7-4.5) mg/dL Magnesium (1.6-2.6) mg/dL Total Bilirubin 0.6 (0.3-1.0) mg/dL Direct Bilirubin 0.3 H (0.0-0.2) mg/dL Indirect Bilirubin 0.3 (0.0-1.2) mg/dL AST 19 (13-39) Units/L ALT 22 (7-52) Units/L Alkaline Phosphatase 158 H (34-104) Units/L Creatine Kinase (30-223) Units/L Troponin I (< 0.04) ng/mL Serum Total Protein 4.9 L (6.4-8.9) g/dL Albumin 2.0 L (3.5-5.7) g/dL Globulin 2.9 (2.4-3.5) g/dL Albumin/Globulin Ratio 0.7 L (1.1-2.2) Triglycerides 138 (< 150) mg/dL Lipase (11-82) Units/L Beta-Hydroxybutyric Acd (0.02-0.27) mmol/L Urine Color (Yellow) Urine Clarity (Clear) Urine pH (5.0-8.0) pH Units Ur Specific [place] (1.010-1.025) Urine Protein (Neg-Trace) mg/dL Urine Glucose (UA) (Normal) mg/dL Urine Ketones (Negative) mg/dL Urine Blood (Negative) Urine Nitrite (Negative) Urine Bilirubin (Negative) Urine Urobilinogen (Normal) mg/dL Ur Leukocyte Esterase (Negative) Urine Microscopic RBC (0-3) per hpf Urine Microscopic WBC (0-3) per hpf Ur Squamous Epith Cells (None-Few) per lpf Urine Bacteria (None-Few) per hpf Ur Culture Indicated? (NO) Urine Opiates Screen (Bswrhf=705) ng/mL Ur Barbiturates Screen (Aaidgv=144) ng/mL Ur Phencyclidine Scrn (Cutoff=25) ng/mL Ur Amphetamines Screen (Xfhkur=3073) ng/mL U Benzodiazepines Scrn (Efcwne=094) ng/mL Urine Cocaine Screen (Cutoff= 300) ng/mL U Marijuana (THC) Screen (Cutoff = 50) ng/mL Ethyl Alcohol (Less than 10) mg/dL Specimen Rejected 12/16/17 12/16/17 Range/Units 12:53 13:14 WBC (4.3-11.1) K/mcL RBC (4.19-5.50) M/mcL Hgb (12.9-16.9) g/dL Hct (37.5-50.1) % MCV (83.0-100.0) fL MCH (28.0-33.3) pg MCHC (31.6-35.5) g/dL RDW (11.5-14.5) % Plt Count (140-400) K/mcL MPV (9.4-12.4) fL Seg Neutrophils % % Lymphocytes % % Monocytes % % Neutrophils # (1.6-8.9) K/mcL Lymphocytes # (0.6-4.6) K/mcL Monocytes # (0.0-1.3) K/mcL Platelet Estimate (Normal) Immature Plt Fraction (1.1-6.1) % PT (9.4-12.1) Seconds INR APTT (26.0-36.0) Seconds Sample Site ABG pH (7.32-7.45) pH Units ABG pCO2 (35-45) mmHg ABG pO2 (85-104) mmHg ABG HCO3 (21-27) mEq/L ABG Total CO2 (20-26) mEq/L ABG O2 Saturation (95-98) % ABG Base Excess (-2 to 3) mEq/L Gurjit Test VBG pH (7.32-7.42) pH Units VBG pCO2 (41-51) mmHg VBG pO2 (25-50) mmHg VBG HCO3 (21-27) mEq/L Respiration Rate O2 Delivery Device Blood Gas Modality Inspired O2 (1-15=lpm [id number]=%) Tidal Volume cc PEEP cm H2O Sodium (136-145) mEq/L Potassium (3.5-5.1) mEq/L Chloride (98-107) mEq/L Carbon Dioxide (23-29) mEq/L BUN (8-23) mg/dL Creatinine (0.70-1.30) mg/dL Est GFR ( Amer) (> 60) Est GFR (Non-Af Amer) (> 60) BUN/Creatinine Ratio (6-26) Glucose (70-105) mg/dL Calculated Osmolality (280-300) Lactic Acid (0.5-2.2) mmol/L Calcium (8.6-10.3) mg/dL Phosphorus (2.7-4.5) mg/dL Magnesium (1.6-2.6) mg/dL Total Bilirubin (0.3-1.0) mg/dL Direct Bilirubin (0.0-0.2) mg/dL Indirect Bilirubin (0.0-1.2) mg/dL AST (13-39) Units/L ALT (7-52) Units/L Alkaline Phosphatase (34-104) Units/L Creatine Kinase (30-223) Units/L Troponin I 0.16 H* (< 0.04) ng/mL Serum Total Protein (6.4-8.9) g/dL Albumin (3.5-5.7) g/dL Globulin (2.4-3.5) g/dL Albumin/Globulin Ratio (1.1-2.2) Triglycerides (< 150) mg/dL Lipase (11-82) Units/L Beta-Hydroxybutyric Acd (0.02-0.27) mmol/L Urine Color (Yellow) Urine Clarity (Clear) Urine pH (5.0-8.0) pH Units Ur Specific [place] (1.010-1.025) Urine Protein (Neg-Trace) mg/dL Urine Glucose (UA) (Normal) mg/dL Urine Ketones (Negative) mg/dL Urine Blood (Negative) Urine Nitrite (Negative) Urine Bilirubin (Negative) Urine Urobilinogen (Normal) mg/dL Ur Leukocyte Esterase (Negative) Urine Microscopic RBC (0-3) per hpf Urine Microscopic WBC (0-3) per hpf Ur Squamous Epith Cells (None-Few) per lpf Urine Bacteria (None-Few) per hpf Ur Culture Indicated? (NO) Urine Opiates Screen (Skdmez=085) ng/mL Ur Barbiturates Screen (Pjwonf=874) ng/mL Ur Phencyclidine Scrn (Cutoff=25) ng/mL Ur Amphetamines Screen (Ayrfwi=0119) ng/mL U Benzodiazepines Scrn (Aipxgl=132) ng/mL Urine Cocaine Screen (Cutoff= 300) ng/mL U Marijuana (THC) Screen (Cutoff = 50) ng/mL Ethyl Alcohol (Less than 10) mg/dL Specimen Rejected MCV Delta - Radiology Data Radiology results reviewed: Yes I reviewed the patient's radiology results. Chest X-Ray 12/16/17 08:05 IMPRESSION: Patchy interstitial opacity in the right perihilar region and right lung base with peribronchial wall thickening, nonspecific but may be related to an infectious or inflammatory process. No focal consolidation. D/ / 12/16/2017 09:15:49 Basia Brizuela MD / Viola Simpson Interpreting Provider: Basia Brizuela MD Head CT 12/16/17 08:06 IMPRESSION: 1. No acute intracranial abnormality. 2. Cerebral and cerebellar parenchymal volume loss with chronic microvascular white matter ischemic disease. D/ / 12/16/2017 09:13:30 Kristofer Schwarz MD / francois Interpreting Provider: Kristofer Schwarz MD Cervical Spine CT 12/16/17 08:07 IMPRESSION: Motion degraded study. No acute abnormality of the cervical spine. D/ / 12/16/2017 09:11:56 Randy Brizuela MD / Viola Simpson Interpreting Provider: Randy Brizuela MD - EKG Data EKG #1 EKG attestation: Yes I reviewed and interpreted this EKG. EKG results narrative: Normal sinus rhythm with a sinus arrhythmia at the rate of 95. MI interval is 174. Castration is 97. QTC is 350. QTC is 402. No signs of acute ischemia. There are ST depressions in leads V5 and V6 however these were present on the previous EKG dated 11/18/2017. No significant change from previous Sepsis Reassessment Note - Evaluation Sepsis Screen: No Definite Risk Current Stage of Sepsis: sepsis Possible Source of Sepsis: genitourinary - Focused Exam Date of Encounter: 12/16/17 Time of Encounter: 10:41 Vital Signs: Vital Signs Temp Pulse Resp BP Pulse Ox 12/16/17 13:19 24 81/70 100 04/02/18 12:54 120 12/16/17 12:13 98.4 F 120 25 87/63 100 12/16/17 12:05 35 115/101 94 12/16/17 11:25 22 118/84 12/16/17 10:41 93 20 99/78 100 12/16/17 09:07 86 22 118/82 98 12/16/17 08:15 99 12/16/17 08:02 97.3 F L 103 20 100/59 97 Respiratory Exam: Present: CTA bilaterally Cardiovascular Exam: Present: RRR Capillary Refill: < 2 seconds Peripheral Pulse Strength: 3+ normal Peripheral Pulse Location: Radial Skin Exam: pink (Poor turgor.)
[2017-12-16 08:43] LABS: Hematocrit 39.7 % (37.5-50.1); Hemoglobin 12.5 g/dL (12.9-16.9); Immature Platelets 4.1 % (1.1-6.1); Mean Corpuscular HGB Conc 31.5 g/dL (31.6-35.5); Mean Corpuscular Hemoglobin 30.3 pg (28.0-33.3); Mean Corpuscular Volume 96.1 fL (83.0-100.0); Mean Platelet Volume 11.7 fL (9.4-12.4); Platelet Count 221 K/mcL (140-400); Red Blood Count 4.13 M/mcL (4.19-5.50); Red Cell Distribution Width 13.7 % (11.5-14.5)
[2017-12-16 08:47] LABS: INR 1.1; Prothrombin Time 12.2 Seconds (9.4-12.1)
[2017-12-16 08:49] LABS: Activated Partial Thrombo Time 25.5 Seconds (26.0-36.0)
[2017-12-16 08:57] LABS: Bilirubin,Urine Negative (Negative); Blood,Urine Moderate (Negative); Clarity,Urine Turbid (Clear); Color,Urine Yellow (Yellow); Glucose,Urine (UA) >=1000 mg/dL (Normal); Ketones,Urine Negative (Negative); Specific Gravity,Urine 1.024 (1.010-1.025)
[2017-12-16 08:58] LABS: Leukocyte Esterase,Urine Moderate (Negative); Nitrite,Urine Negative (Negative); Protein,Urine 100 mg/dL (Neg-Trace); Urobilinogen,Urine Normal (Normal)
[2017-12-16 09:02] LABS: Magnesium 2.4 mg/dL (1.6-2.6); Phosphorous 4.5 mg/dL (2.7-4.5)
[2017-12-16 09:04] LABS: Bacteria,Urine Many per hpf (None-Few); RBC,Urine 15-30 per hpf (0-3); Squamous Epithelial Cell,Urine Few per lpf (None-Few); WBC,Urine 30-50 per hpf (0-3)
[2017-12-16 09:08] LABS: Alanine Aminotransferase 34 Units/L (7-52); Albumin 3.1 g/dL (3.5-5.7); Albumin/Globulin Ratio 0.7 (1.1-2.2); Alkaline Phosphatase 166 Units/L (34-104); Aspartate Amino Transferase 22 Units/L (13-39); BUN/Creatinine Ratio 21 (6-26); Bilirubin,Direct 0.3 mg/dL (0.0-0.2); Bilirubin,Indirect 0.5 mg/dL (0.0-1.2); Bilirubin,Total 0.8 mg/dL (0.3-1.0); Blood Urea Nitrogen 93 mg/dL (8-23); Calcium 9.8 mg/dL (8.6-10.3); Carbon Dioxide 23 mEq/L (23-29); Chloride 108 mEq/L (98-107); Creatine Kinase 28 Units/L (30-223); Globulin 4.3 g/dL (2.4-3.5); Glucose 622 mg/dL (70-105); Lipase 16 Units/L (11-82); Osmolality,Calculated 354 (280-300); Potassium 5.7 mEq/L (3.5-5.1); Sodium 143 mEq/L (136-145); Total Protein 7.4 g/dL (6.4-8.9); Troponin I 0.22 ng/mL (< 0.04); eGFR For African Americans 15 (> 60); eGFR For Non-African Americans 13 (> 60)
[2017-12-16] MEDS ORDERED: Levofloxacin 750 MG/150 ML 750 MG/150 ML BAG IVPB ONE (09:08)
[2017-12-16] MEDS ORDERED: Piperacillin/Tazobactam 3.375 GM in 0.9 % Sodium Chloride Mini Bag 100 ML IVPB ONE (09:08)
[2017-12-16] MEDS ORDERED: *HR* Dextrose 50 % in Water (Syg) 50 ML SYRINGE IVP PRN (09:16)
[2017-12-16 09:19] LABS: Lymphocytes # 1.1 K/mcL (0.6-4.6); Monocytes # 1.1 K/mcL (0.0-1.3); Neutrophils # 11.5 K/mcL (1.6-8.9); Platelet Estimate Normal (Normal)
[2017-12-16] MEDS ORDERED: Insulin Human Regular 100 UNIT in 0.9 % Sodium Chloride 100 ML IVC SCH (09:30)
[2017-12-16 09:44] LABS: VBG HCO3 25 mEq/L (21-27); VBG PCO2 52 mmHg (41-51); VBG PH 7.29 pH Units (7.32-7.42); VBG PO2 35 mmHg (25-50)
[2017-12-16 10:35] LABS: Amphetamine Screen,Urine Negative ng/mL (Cutoff=1000); Barbiturate Screen,Urine Negative ng/mL (Cutoff=200); Benzodiazepines Screen,Urine Negative ng/mL (Cutoff=200); Cannabinoid Screen,Urine Negative ng/mL (Cutoff = 50); Cocaine Screen,Urine Negative ng/mL (Cutoff= 300); Opiate Screen,Urine Negative ng/mL (Cutoff=300); Phencyclidine Screen,Urine Negative ng/mL (Cutoff=25)
[2017-12-16 10:54] LABS: Ethanol < 10 mg/dL (Less than 10)
[2017-12-16] MEDS ORDERED: *HR* OxyCODONE/APAP 10/325 TABLET PO ONE (11:12)
[2017-12-16] MEDS ORDERED: Naloxone 0.4 MG/ML INJ IVP PRN (12:07)
[2017-12-16] MEDS ORDERED: Dexmedetomidine HCl 400 MCG/100 ML MLS IVC ONE (12:13)
[2017-12-16] MEDS ORDERED: Ringers Solution, Lactated 1,000 ML ONE (12:30)
--- NOTE | 2017-12-16 12:34 | Internal Med History&Physical ---
Date of Encounter: 12/16/17 Time of Encounter: 12:20 Assessment and Plan (1) Sepsis Current visit: Yes Status: Acute Sepsis from pneumonia and a UTI continue antibiotics with vanco zosyn znad levaquin Qualifiers: Sepsis type: sepsis due to unspecified organism Qualified Code(s): A41.9 - Sepsis, unspecified organism (2) Acute respiratory failure with hypoxia Current visit: Yes Status: Acute Acute hypoxic respiratory failure from pneumonia and a COPD exacerbation and possible CHF exacerbation, will check echocardiogram Give steroids and antibiotics with HCAP coverage. Patient current on BiPAP, may need intubation if he could not tolerates BIPAP (3) UTI (urinary tract infection) Current visit: Yes Status: Acute Qualifiers: Urinary tract infection type: acute cystitis Hematuria presence: without hematuria Qualified Code(s): N30.00 - Acute cystitis without hematuria (4) Elevated troponin Current visit: Yes Status: Acute chronic elevation, will follow up trop, check TTE (5) Pneumonia Current visit: Yes Status: Acute Patient was just discharged from hospital on November 21, possible gram-negative and MRSA pneumonia, continue vanco zosyn levaquin Qualifiers: Pneumonia type: due to other aerobic Gram-negative bacteria Laterality: bilateral Lung location: unspecified part of lung Qualified Code(s): J15.6 - Pneumonia due to other Gram-negative bacteria (6) Acute exacerbation of chronic obstructive pulmonary disease (COPD) Current visit: Yes Status: Acute add IV steroids, Nebs (7) CKD (chronic kidney disease) stage 4, GFR 15-29 ml/min Current visit: Yes Status: Chronic ARF non CKD 4, Cr further elevated, from dehdyration (8) Diabetes Current visit: No Status: Chronic hyperglycemia from steroids, in insulin drip Qualifiers: Diabetes mellitus type: type 2 Diabetes mellitus sales order processor insulin use: without sales order processor use Diabetes mellitus complication status: with unspecified complications Qualified Code(s): E11.8 - Type 2 diabetes mellitus with unspecified complications (9) Tobacco abuse Current visit: No Status: Chronic (10) Alzheimer's dementia Current visit: No Status: Chronic Qualifiers: Alzheimer's disease onset: unspecified onset Dementia behavioral disturbance: with behavioral disturbance Qualified Code(s): G30.9 - Alzheimer' s disease, unspecified; F02.81 - Dementia in other diseases classified elsewhere with behavioral disturbance; F02.81 - Dementia in other diseases classified elsewhere with behavioral disturbance; F02.81 - Dementia in other diseases classified elsewhere with behavioral disturbance Internal Medicine - H&P: HPI Chief complaint: SOB Admitted From: Home Plans for Post Hospital Care: [facility] History of present illness: Mr. Gerard is a 82 year old male dementia, diabetes, hypertension, CKD 4 presented emergency room for sudden onset of shortness of breath. Patient has dementia,very poor historian, and he is confused. medical history is obtained from his son who lives with patient. Patient was just discharged home on November 22 after COPD exacerbation. He was discharged on steroids, patient woke up this morning with confusion and SOB. EMS was called. In emergency room, patient was very shortness of breath and hypoxic. Lab shows acute renal failure on CK D stage IV, BG 622, troponin was mildly elevated. The chest x-ray shows possible pneumonia. UA also shows infections. Patient is going to be admitted for sepsis from pneumonia and UTI. I has extensive talk with his son about his CODE STATUS. His daughter is a POA Ana was called by his son, they wants to everything ;to save his life. But they understand the very poor prognosis due to advanced age and dementia and multiple comorbidities. After patient arrived 2A, nurse is unalbe to get his O2 sat, BP was 70/58, RR 30> I saaw the patient again, and transfered to ICU. pulmonary was paged. Patient is placed on BIPAP, IVF bolus, insulin drip. will check stat labs, ABG. I spoke to critical care doctor Margret and he is consulted. Past Med Surg Social Fam HX - Past Medical History Medical history: dementia, diabetes, hypertension, renal disease Psychiatric history: depression - Past Surgical History Surgical History: carotid endarterectomy, cholecystectomy, other - Social History Smoking Status: Current every day smoker Smokeless Tobacco Status: No Alcohol use: rarely Drug use: none - Family History Father Family Member Ethnicity: Non- Living Status: Hx Family Cancer: Yes Mother Family Member Ethnicity: Non- Living Status: Brother Family Member Ethnicity: Non- Living Status: Still Living Hx Family Cardiac Disorders: Yes (Heart blockages) Sister Family Member Ethnicity: Non- Living Status: Still Living Internal Medicine - H&P: Meds Aspirin 81 mg PO DAILY 08/04/15 [History] Atorvastatin [Lipitor] 20 mg PO HS 08/04/15 [History] GlipiZIDE [Glipizide Xl] 2.5 mg PO DAILY 08/04/15 [History] Metoprolol XL (24 HR) Succ [Toprol Xl] 25 mg PO DAILY 08/04/15 [History] OxyCODONE/APAP 10/325 [Percocet 10/325] 1 tab PO Q8H PRN 08/04/15 [History] Albuterol Sulfate [Albuterol Inhaler] 2 puff IH [id number] PRN 7 Days #1 inhaler [Rx] Docusate [Colace] 100 mg PO BID 7 Days #14 capsule 11/20/17 [Rx] Ipratropium/Albuterol Neb [Duoneb] 3 ml IH Q6HR PRN 12/16/17 [History] 3 Allergy/AdvReac Type Severity Reaction Status Date / Time No Known Allergies Allergy Verified 07/13/15 22:47 ROS unobtainable: due to mental status All Systems PM: A 10-system review of systems was performed and is negative for pertinent findings except as documented above in the HPI. - Constitutional Vitals: Temp Pulse Resp BP Pulse Ox 97.3 F L 93 35 115/101 94 12/16/17 08:02 12/16/17 10:41 12/16/17 12:05 12/16/17 12:05 12/16/17 12:05 General appearance: Present: A&O X 0, mild distress Exam: CONSTITUTIONAL: Patient appears as an age appropriate male well developed, in no acute distress. EYES Clear sclerae, bilateral pupils are equal, reactive to light and accommodation. Extraocular movements are intact RESPIRATORY: No accessory muscle use, bilateral clear to auscultation, no wheezing, no crackles/rales. CARDIOVASCULAR: Regular heart rate, normal S1 and S2, no murmurs GASTROINTESTINAL: bowel sounds present, soft, no tenderness. No hepatosplenomegaly. No bilateral CVA tenderness MUSCULOSKELETAL: Joints in normal range of motion, no clubbing, no edema, no cyanosis. Bilateral peripheral pulses 2+ LYMPHATIC no lymphadenopathy in neck, groin and axilla bilaterally, no thyromegaly. NEUROLOGIC: confused, no focal neurological deficit. PSYCHIATRIC: SOB, disoriented. SKIN: Skin warm and dry, no rashes, no open wound. Internal Med - H&P Results - Labs CBC & Chem 7: 12/16/17 08:21 12/16/17 08:21
[2017-12-16 12:42] LABS: ABG Base Excess -9 mEq/L (-2 to 3); ABG HCO3 15 mEq/L (21-27); ABG Oxygen Saturation 100 % (95-98); ABG PCO2 25 mmHg (35-45); ABG PH 7.38 pH Units (7.32-7.45); ABG PO2 229 mmHg (85-104); ABG TCO2 15 mEq/L (20-26); Blood Gas Modality NIV; Blood Gas PEEP 8 cm H2O; Blood Gas Respiration Rate 12; Blood Gas VT 450 cc
[2017-12-16] MEDS: Norepinephrine 4 MG in D5% in Water 250 ML IVC SCH ×5 (13:20→22:47)
[2017-12-16] MEDS ORDERED: 0.9 % Sodium Chloride 1,000 ML ONE (13:22)
[2017-12-16] MEDS ORDERED: *HR* FentaNYL (PF) 100 MCG/2 ML VIAL ONE (13:47)
[2017-12-16] MEDS ORDERED: Vasopressin 40 UNIT in D5% in Water 100 ML IV SCH (14:00)
--- NOTE | 2017-12-16 14:32 | Procedure Note ---
<Rebel Griffin - Last Filed: 12/16/17 14:21> Date of procedure: 12/16/17 Pre-op diagnosis: septic shock Post-op diagnosis: same Procedure: EMERGENT right femoral central venous catheter successfully placed, first attempt FAILED left femoral arterial line placement under ultrasound guidance, one attempt EMERGENT right radial arterial line placed under ultrasound guidance successfully placed, first attempt All performed under the direct supervision of oracle hyperion consultant attending Dr. Shine Moreira Was there an review assistant present: No Estimated blood loss (cc): 5 Specimen: none Pathology: none sent Condition: critical Disposition: ICU Procedures - Arterial Line Consent Obtained: verbal consent Size (Gauge): 20 Technique Used: guide wire technique Post-Procedure: line sutured into place, line taped into place, dry sterile dressing placed Patient Tolerated Procedure: well, no complications Complications: none Site: left (femoral, x1 attempt), right (radial, x1 attempt), radial, femoral Additional Comments: Failed first attempt for left femoral arterial line placement with ultrasound guidance with seldinger technique, wire was able to pass but loss of arterial pulse and inability to threat catheter. At this time patient was also hypotensive and requiring Dopamine. My attending also attempted femoral placement, please see his procedural note for further details. Finally another attempt in the right radial artery with success, this was also placed with seldinger technique under ultrasound guidance. Approximately 5 cc blood loss. - Central Line Placement Right Femoral Central Line Inserted*: Yes Central Line Catheter Replacement*: No Central Line Insertion: emergent Consent Obtained: verbal consent (FROM ANNIE HOOVER) Procedural Pause: verify patient name and date of , renetta and assess the site, assemble equipment and verify supplies, perform hand hygiene During the Procedure: clinician is wearing sterile gloves, cap, mask,& gown during insertion, sterile field and sterile technique are maintained Prep the Procedure Site: apply chloraprep to the skin using a back and forth scrubbing motion, apply chloraprep for 30 seconds (upper body), 1-2 min ( femoral sites), allow prep to dry Ultrasound Used for Placement: No Central Line Lumen Inserted: triple Post Procedure: sutured in place, good blood return, all ports aspirated, flushed, capped, sterile dressing applied, guide wire removed and visualized Patient Tolerated Procedure: well, no complications Complications: other Name of Clinician Inserting Central Line: Rebel Griffin DO Date: 12/16/17 Time: 14:33 Additional Comments: Performed under the direct supervision of Dr. Shine Moreira. Patient was becoming unresponsive and unstable, CVC emergently placed. I was gowned and gloved with site marked and cleaned but patient was not completely draped as a result of the emergent situation. Ultrasound probe cover was opened but not placed and femoral vein was palpated and accessed with good return on first attempt. No complications during placement of CVC. <Wyatt Moreira W - Last Filed: 12/16/17 18:59> Procedure: I was present for the entirety of these procedures and supervised along with assisted. The procedures were performed skillfully by the Resident Physician Dr Griffin
[2017-12-16 14:34] LABS: Hematocrit 35.2 % (37.5-50.1); Mean Corpuscular HGB Conc 31.3 g/dL (31.6-35.5); Mean Corpuscular Hemoglobin 30.6 pg (28.0-33.3); Mean Platelet Volume 11.2 fL (9.4-12.4); Nucleated Red Blood Cells 0.4 /100 WBC (0); Platelet Count 149 K/mcL (140-400); Red Cell Distribution Width 13.7 % (11.5-14.5)
[2017-12-16 14:35] LABS: Mean Corpuscular Volume 97.8 fL (83.0-100.0)
[2017-12-16 14:46] LABS: INR 1.3; Prothrombin Time 14.1 Seconds (9.4-12.1)
--- NOTE | 2017-12-16 14:49 | Electrocardiograph Report ---
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
[2017-12-16] MEDS: FentaNYL (PF) 1,000 MCG in 0.9 % Sodium Chloride 80 ML IVC SCH ×2 (14:50→22:46)
--- NOTE | 2017-12-16 14:51 | Pulmonology Consult Note ---
<Wyatt Moreira W - Last Filed: 12/16/17 17:11> Date of Encounter: 12/16/17 Medications and Allergies Aspirin 81 mg PO DAILY 08/04/15 [History] Atorvastatin [Lipitor] 20 mg PO HS 08/04/15 [History] GlipiZIDE [Glipizide Xl] 2.5 mg PO DAILY 08/04/15 [History] Metoprolol XL (24 HR) Succ [Toprol Xl] 25 mg PO DAILY 08/04/15 [History] OxyCODONE/APAP 10/325 [Percocet 10/325] 1 tab PO Q8H PRN 08/04/15 [History] Albuterol Sulfate [Albuterol Inhaler] 2 puff IH [id number] PRN 7 Days #1 inhaler [Rx] Docusate [Colace] 100 mg PO BID 7 Days #14 capsule 11/20/17 [Rx] Ipratropium/Albuterol Neb [Duoneb] 3 ml IH Q6HR PRN 12/16/17 [History] 3 Allergy/AdvReac Type Severity Reaction Status Date / Time No Known Allergies Allergy Verified 07/13/15 22:47 All Systems: The remainder of the systems were reviewed and are negative Physical Examination Vital Signs: Vital Signs, Last 4 Hours Pulse Resp BP Pulse Ox 12/16/17 15:15 18 85/69 100 12/16/17 15:00 100 22 111/48 97 12/16/17 14:45 120 22 85/64 98 12/16/17 14:00 139 18 82/49 100 12/16/17 13:19 24 81/70 100 Ventilator Settings Ventilator Settings: Ventilator Settings, Last 8 Hours Ventilator Mode VC+ Ventilator Mode VC+ Ventilator Mode VC+ Ventilator Tidal Volume 450 Setting Ventilator Tidal Volume 450 Setting Ventilator Tidal Volume 500 Setting Ventilator Tidal Volume 450 Setting Ventilator Respiratory Rate 18 Setting Ventilator Respiratory Rate 18 Setting Ventilator Respiratory Rate 12 Setting Ventilator Respiratory Rate 12 Setting Actual Respiratory Rate 22 Actual Respiratory Rate 22 Actual Respiratory Rate 22 Actual Respiratory Rate 24 Positive End Expiratory 5 Pressure Positive End Expiratory 5 Pressure Positive End Expiratory 5 Pressure Positive End Expiratory 5 Pressure Positive End Expiratory 8 Pressure Peak Inspiratory Airway 8 Pressure Peak Inspiratory Airway 7 Pressure Results - Laboratory Findings CBC and BMP: 12/16/17 14:22 12/16/17 14:22 ABG ABG pH 7.34 pH Units (7.32-7.45) 12/16/17 15:30 ABG pCO2 36 mmHg (35-45) 12/16/17 15:30 ABG pO2 132 mmHg (85-104) H D 12/16/17 15:30 ABG O2 Saturation 99 % (95-98) H 12/16/17 15:30 PT/INR, D-dimer PT 14.1 Seconds (9.4-12.1) H 12/16/17 14:22 Abnormal lab findings: Abnormal lab results RBC 3.60 M/mcL (4.19-5.50) L 12/16/17 14:22 Hgb 11.0 g/dL (12.9-16.9) L D 12/16/17 14:22 Hct 35.2 % (37.5-50.1) L 12/16/17 14:22 MCHC 31.3 g/dL (31.6-35.5) L 12/16/17 14:22 Lymphocytes # 0.5 K/mcL (0.6-4.6) L 12/16/17 14:22 Nucleated RBCs/100 WBC 0.4 /100 WBC (0) H 12/16/17 14:22 PT 14.1 Seconds (9.4-12.1) H 12/16/17 14:22 APTT 25.5 Seconds (26.0-36.0) L 12/16/17 08:21 ABG pO2 132 mmHg (85-104) H D 12/16/17 15:30 ABG HCO3 19 mEq/L (21-27) L 12/16/17 15:30 ABG O2 Saturation 99 % (95-98) H 12/16/17 15:30 ABG Base Excess -6 mEq/L (-2 to 3) L 12/16/17 15:30 VBG pH 7.29 pH Units (7.32-7.42) L 12/16/17 09:39 VBG pCO2 52 mmHg (41-51) H 12/16/17 09:39 Sodium 150 mEq/L (136-145) H 12/16/17 14:22 Chloride 117 mEq/L (98-107) H 12/16/17 14:22 Carbon Dioxide 19 mEq/L (23-29) L 12/16/17 14:22 BUN 86 mg/dL (8-23) H 12/16/17 14:22 Creatinine 4.15 mg/dL (0.70-1.30) H 12/16/17 14:22 Est GFR ( Amer) 17 (> 60) L 12/16/17 14:22 Est GFR (Non-Af Amer) 14 (> 60) L 12/16/17 14:22 POC Glucose 447 mg/dL (68-89) H* 12/16/17 11:45 Calculated Osmolality 336 (280-300) H 12/16/17 14:22 Lactic Acid 8.2 mmol/L (0.5-2.2) H* 12/16/17 12:34 Total Bilirubin 1.1 mg/dL (0.3-1.0) H 12/16/17 14:22 Direct Bilirubin 0.7 mg/dL (0.0-0.2) H 12/16/17 14:22 AST 40 Units/L (13-39) H 12/16/17 14:22 Alkaline Phosphatase 355 Units/L (34-104) H 12/16/17 14:22 Creatine Kinase 28 Units/L (30-223) L 12/16/17 08:21 Troponin I 0.32 ng/mL (< 0.04) H* 12/16/17 14:22 B-Natriuretic Peptide 429 pg/mL (Less than 100) H 12/16/17 14:22 Serum Total Protein 5.9 g/dL (6.4-8.9) L 12/16/17 14:22 Albumin 2.5 g/dL (3.5-5.7) L 12/16/17 14:22 Albumin/Globulin Ratio 0.7 (1.1-2.2) L 12/16/17 14:22 Triglycerides 169 mg/dL (< 150) H 12/16/17 14:22 Beta-Hydroxybutyric Acd 0.67 mmol/L (0.02-0.27) H 12/16/17 08:21 Urine Clarity Turbid (Clear) A 12/16/17 08:16 Urine Protein 100 mg/dL (Neg-Trace) H 12/16/17 08:16 Urine Glucose (UA) >=1000 mg/dL (Normal) H 12/16/17 08:16 Urine Blood Moderate (Negative) H 12/16/17 08:16 Ur Leukocyte Esterase Moderate (Negative) H 12/16/17 08:16 Urine Microscopic RBC 15-30 per hpf (0-3) H 12/16/17 08:16 Urine Microscopic WBC 30-50 per hpf (0-3) H 12/16/17 08:16 Urine Bacteria Many per hpf (None-Few) H 12/16/17 08:16 Ur Culture Indicated? YES (NO) A 12/16/17 08:16 - Clinical Findings Intake & Output: Intake & Output 12/16/17 12/16/17 12/16/17 07:59 15:59 23:59 Intake Total 305 / 305 Output Total 0 / 0 Balance 305 / 305 Weight 60.2 kg Consult Discharge Plan - Plan Referrals: Ministerio Mancia MD [Primary Care Provider] - - Attending Attestation I examined this patient and my medical decision-making was reviewed with the Resident Physician. I agree with the documented findings, disposition and treatment plan as described except to the extent set forth below. We independently had [id number] contact with the patient I spent 60min of Critical Care time with this patient. It involved decision making of high complexity to assess, manipulate, and support vital organ system failure and/or to prevent further life threatening deterioration of the patient' s condition. The time involved in the performance of separately reportable procedures was not counted toward critical care time. Patient seen and examined at bedside Labs, radiology, chart personally reviewed. Management was reviewed during multidisciplinary critical care rounds. 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 Patient also has evidence of troponin elevation which is likely demand ischemia echocardiogram pending I suspect this is much more likely than ACS and will consult cardiology based on results of echocardiogram. Patient was in SVT which was likely related to vasopressor infusion this did respond to some degree to synchronized cardioversion; patient remains on multiple vasopressors to keep MAP >60 he is status post volume resuscitation e FEN-GI: Nothing by mouth for now GI prophylaxis given Renal: Acute on chronic kidney injury patient per family has "one kidney" we will renal adjust all medications and avoid nephrotoxins able likely will need to consult nephrology closely monitor his potassium and urine output ID: Septic shock of unclear etiology but likely UTI Heme/Onc: DVT prophylaxis per routine Endo: DKA suspected on insulin infusion per protocol Integ/MSK: Skin Care per routine ICU Nursing Protocol to prevent ulcers. Lines: All lines examined he had an emergently placed femoral line which will likely need to be removed within 24 hours to avoid infection Dispo: ICU for critical illness CODE: Given advanced age and multiple medical comorbidities overall prognosis is very grandma have updated the patient's immediate family his adult children in brother and sister and they were clear that they want aggressive measures performed up to the point of cardiac arrest so code status changed to reflect this DNAR/DNI <Svetlana Castillo - Last Filed: 12/16/17 17:15> Date of Encounter: 12/16/17 Time of Encounter: 01:00 Assessment and Plan (1) Hypovolemic shock Current Visit: Yes Status: Acute (2) HCAP (healthcare-associated pneumonia) Current Visit: Yes Status: Acute (3) Diabetes Current Visit: No Status: Chronic Qualifiers: Diabetes mellitus type: type 2 Diabetes mellitus emt intermediate insulin use: without emt intermediate use Diabetes mellitus complication status: with unspecified complications Qualified Code(s): E11.8 - Type 2 diabetes mellitus with unspecified complications (4) Acute exacerbation of chronic obstructive pulmonary disease (COPD) Current Visit: Yes Status: Acute (5) Acute respiratory failure with hypoxia Current Visit: Yes Status: Acute (6) Alzheimer's dementia Current Visit: No Status: Chronic Qualifiers: Alzheimer's disease onset: unspecified onset Dementia behavioral disturbance: with behavioral disturbance Qualified Code(s): G30.9 - Alzheimer' s disease, unspecified; F02.81 - Dementia in other diseases classified elsewhere with behavioral disturbance; F02.81 - Dementia in other diseases classified elsewhere with behavioral disturbance; F02.81 - Dementia in other diseases classified elsewhere with behavioral disturbance (7) CKD (chronic kidney disease) stage 4, GFR 15-29 ml/min Current Visit: Yes Status: Chronic (8) Elevated troponin Current Visit: Yes Status: Acute (9) Sepsis Current Visit: Yes Status: Acute Qualifiers: Sepsis type: sepsis due to unspecified organism Qualified Code(s): A41.9 - Sepsis, unspecified organism (10) UTI (urinary tract infection) Current Visit: Yes Status: Acute Qualifiers: Urinary tract infection type: acute cystitis Hematuria presence: without hematuria Qualified Code(s): N30.00 - Acute cystitis without hematuria (11) DVT prophylaxis Current Visit: No Status: Acute Heparin SQ History of Present Illness Consult date: 12/16/17 Requesting physician: Abhilash Bocanegra Reason for consult: hypoxemia Chief complaint: AMS History of present illness: is a 82 y/o male with a past medical history of RD, DM2, HTN, and dementia presented to the ED from home for altered mental status. Family stated that patient fell on his sacrum and did not hit his head about 1 week ago. He has been able to stand but has not been able to walk since this incidence. Patient has baseline dementia but has been more confused today. Patient was previously in the hospital about 2 weeks ago for COPD exacerbation for 2 days. Past Med Surg Social Fam HX - Past Medical History Source: old records reviewed, obtained from family Medical history: cancer (renal ), diabetes, hyperlipidemia, hypertension, other (hyperparathyroidism, ) - Past Surgical History Surgical History: cholecystectomy, herniorrhaphy, other (nephrectomy Left, left CEA (2011(,) - Social History Smoking Status: Current every day smoker Alcohol use: none Drug use: none Current living situation: Home, With Family ROS unobtainable: due to mental status All Systems: The remainder of the systems were reviewed and are negative Physical Examination Vital Signs: Vital Signs, Last 4 Hours Temp Pulse Resp BP Pulse Ox 12/16/17 15:15 18 85/69 100 12/16/17 13:19 24 81/70 100 12/16/17 13:00 138 4 57/47 90 12/16/17 12:54 120 12/16/17 12:30 98.4 F 120 25 102/81 98 12/16/17 12:13 98.4 F 120 25 87/63 100 12/16/17 12:05 35 115/101 94 Ventilator Settings Ventilator Settings: Ventilator Settings, Last 8 Hours Ventilator Mode VC+ Ventilator Mode VC+ Ventilator Tidal Volume 450 Setting Ventilator Tidal Volume 500 Setting Ventilator Tidal Volume 450 Setting Ventilator Respiratory Rate 18 Setting Ventilator Respiratory Rate 12 Setting Ventilator Respiratory Rate 12 Setting Actual Respiratory Rate 22 Actual Respiratory Rate 24 Positive End Expiratory 5 Pressure Positive End Expiratory 5 Pressure Positive End Expiratory 8 Pressure Peak Inspiratory Airway 8 Pressure Peak Inspiratory Airway 7 Pressure Results - Laboratory Findings CBC and BMP: 12/16/17 14:22 12/16/17 14:22 ABG ABG pH 7.34 pH Units (7.32-7.45) 12/16/17 15:30 ABG pCO2 36 mmHg (35-45) 12/16/17 15:30 ABG pO2 132 mmHg (85-104) H D 12/16/17 15:30 ABG O2 Saturation 99 % (95-98) H 12/16/17 15:30 PT/INR, D-dimer PT 14.1 Seconds (9.4-12.1) H 12/16/17 14:22 Abnormal lab findings: Abnormal lab results RBC 3.60 M/mcL (4.19-5.50) L 12/16/17 14:22 Hgb 11.0 g/dL (12.9-16.9) L D 12/16/17 14:22 Hct 35.2 % (37.5-50.1) L 12/16/17 14:22 MCHC 31.3 g/dL (31.6-35.5) L 12/16/17 14:22 Lymphocytes # 0.5 K/mcL (0.6-4.6) L 12/16/17 14:22 Nucleated RBCs/100 WBC 0.4 /100 WBC (0) H 12/16/17 14:22 PT 14.1 Seconds (9.4-12.1) H 12/16/17 14:22 APTT 25.5 Seconds (26.0-36.0) L 12/16/17 08:21 ABG pO2 132 mmHg (85-104) H D 12/16/17 15:30 ABG HCO3 19 mEq/L (21-27) L 12/16/17 15:30 ABG O2 Saturation 99 % (95-98) H 12/16/17 15:30 ABG Base Excess -6 mEq/L (-2 to 3) L 12/16/17 15:30 VBG pH 7.29 pH Units (7.32-7.42) L 12/16/17 09:39 VBG pCO2 52 mmHg (41-51) H 12/16/17 09:39 Sodium 150 mEq/L (136-145) H 12/16/17 14:22 Chloride 117 mEq/L (98-107) H 12/16/17 14:22 Carbon Dioxide 19 mEq/L (23-29) L 12/16/17 14:22 BUN 86 mg/dL (8-23) H 12/16/17 14:22 Creatinine 4.15 mg/dL (0.70-1.30) H 12/16/17 14:22 Est GFR ( Amer) 17 (> 60) L 12/16/17 14:22 Est GFR (Non-Af Amer) 14 (> 60) L 12/16/17 14:22 Calculated Osmolality 336 (280-300) H 12/16/17 14:22 Lactic Acid 8.2 mmol/L (0.5-2.2) H* 12/16/17 12:34 Total Bilirubin 1.1 mg/dL (0.3-1.0) H 12/16/17 14:22 Direct Bilirubin 0.7 mg/dL (0.0-0.2) H 12/16/17 14:22 AST 40 Units/L (13-39) H 12/16/17 14:22 Alkaline Phosphatase 355 Units/L (34-104) H 12/16/17 14:22 Creatine Kinase 28 Units/L (30-223) L 12/16/17 08:21 Troponin I 0.32 ng/mL (< 0.04) H* 12/16/17 14:22 B-Natriuretic Peptide 429 pg/mL (Less than 100) H 12/16/17 14:22 Serum Total Protein 5.9 g/dL (6.4-8.9) L 12/16/17 14:22 Albumin 2.5 g/dL (3.5-5.7) L 12/16/17 14:22 Albumin/Globulin Ratio 0.7 (1.1-2.2) L 12/16/17 14:22 Triglycerides 169 mg/dL (< 150) H 12/16/17 14:22 Beta-Hydroxybutyric Acd 0.67 mmol/L (0.02-0.27) H 12/16/17 08:21 Urine Clarity Turbid (Clear) A 12/16/17 08:16 Urine Protein 100 mg/dL (Neg-Trace) H 12/16/17 08:16 Urine Glucose (UA) >=1000 mg/dL (Normal) H 12/16/17 08:16 Urine Blood Moderate (Negative) H 12/16/17 08:16 Ur Leukocyte Esterase Moderate (Negative) H 12/16/17 08:16 Urine Microscopic RBC 15-30 per hpf (0-3) H 12/16/17 08:16 Urine Microscopic WBC 30-50 per hpf (0-3) H 12/16/17 08:16 Urine Bacteria Many per hpf (None-Few) H 12/16/17 08:16 Ur Culture Indicated? YES (NO) A 12/16/17 08:16 - Clinical Findings Intake & Output: Intake & Output 12/15/17 12/16/17 12/16/17 23:59 07:59 15:59 Output Total 0 / 0 Balance 0 / 0 Weight 60.2 kg <Rebel Griffin - Last Filed: 12/16/17 19:57> Date of Encounter: 12/16/17 Time of Encounter: 14:51 Assessment and Plan (1) Septic shock Current Visit: Yes Status: Acute tachycardic and tachypneic on arrival suspected infectious source urinary CT panscan demonstrated diverticulosis without diverticulitis, pneumonia suspicious in RLL currently on empiric antibiotics Vanc, Zosyn, Levaquin blood cultures pending sputum culture pending urinalysis concerning for urinary tract infection with moderate leuk esterase and many bacteria with few squamous - urine culture pending Legionella and Strep antigen pending significantly elevated lactate 8.2, trended 3.9 with pressors BP unresponsive to 1.5 L fluid resuscitation (2) Acute respiratory failure with hypoxia Current Visit: Yes Status: Acute rapid response for respiratory distress and hypoxia, transferred to intensive care unit for further cardiorespiratory monitoring episode of apnea and bradycardia, emergently intubated to protect airway arterial line placed for BP monitoring and ABGs currently mechanically ventilated patient NPO IV Protonix (3) Pneumonia Current Visit: Yes Status: Acute acute respiratory failure CT chest with findings of pulmonary nodules and patchy infiltrate in RLL suspicious for pneumonia empiric antibiotics Legionella and Strep antigen pending sputum culture pending Chest CT 12/16/17 17:30 IMPRESSION: Moderate severe emphysema. Bilateral pulmonary nodules measuring up to 1.8 cm in the left lower lobe. Metastatic disease suspected. Clinical correlation is recommended. CT PET may be helpful. Patchy right lower lobe infiltrate with basilar consolidation highly suspicious for pneumonia. There are patchy irregular opacities in the superior segment. D/ / Ramos Hackett MD / Ramos Hackett MD Interpreting Provider: Ramos Hackett MD Qualifiers: Pneumonia type: due to other aerobic Gram-negative bacteria Laterality: bilateral Lung location: unspecified part of lung Qualified Code(s): J15.6 - Pneumonia due to other Gram-negative bacteria (4) Acute exacerbation of chronic obstructive pulmonary disease (COPD) Current Visit: Yes Status: Acute recent admission for COPD exacerbation continues to be tobacco user recently had nebulizer delivered to home begin scheduled bronchodilators and steroids (5) Elevated lactic acid level Current Visit: Yes Status: Acute signs of septic shock and poor perfusion initial lactate 2.6, after fluid bolus found to have lactate 8.2 after vasopressors recent lactate 3.9 continue to monitor for hypoperfusion patient not on metformin based on home medication list (6) Metabolic acidosis Current Visit: Yes Status: Acute initial anion gap 12, currently gap is 14 likely secondary to lactic acidosis and possible DKA with hyperglycemia and ketonemia (7) Encephalopathy Current Visit: Yes Status: Acute initially presented to hospital for confusion worst than baseline CT head unremarkable for hemorrhage of acute abnormality, limited due to motion artifact differential diagnosis includes metabolic, dementia, hypoperfusion (8) UTI (urinary tract infection) Current Visit: Yes Status: Acute urinalysis consistent with infection treated with empiric antibiotics in the emergency department Qualifiers: Urinary tract infection type: acute cystitis Hematuria presence: without hematuria Qualified Code(s): N30.00 - Acute cystitis without hematuria (9) Elevated troponin Current Visit: Yes Status: Acute initial elevated troponin 0.22 in setting of CKD EKG in the ED reportedly showed ST depressions in lateral leads that are chronic next repeat was 0.16, trend continued and elevate to 0.32 this was s/p 2 shocks ECHO pending patient did deny chest pain (10) CKD (chronic kidney disease) stage 4, GFR 15-29 ml/min Current Visit: Yes Status: Chronic CKD SCr appears at baseline follows with Dr. Leavitt reportedly there have been talks about dialysis in the future he has an upcoming appointment scheduled with Dr. Leavitt (11) Diabetes Current Visit: Yes Status: Chronic history of T2DM found to be hyperglycemia on ED visit continue to monitor glucose reportedly given Glipizide x3 Qualifiers: Diabetes mellitus type: type 2 Diabetes mellitus half-way insulin use: without emt intermediate use Diabetes mellitus complication status: with unspecified complications Qualified Code(s): E11.8 - Type 2 diabetes mellitus with unspecified complications (12) Alzheimer's dementia Current Visit: Yes Status: Chronic underlying dementia patient presented confused more than baseline Qualifiers: Alzheimer's disease onset: unspecified onset Dementia behavioral disturbance: with behavioral disturbance Qualified Code(s): G30.9 - Alzheimer' s disease, unspecified; F02.81 - Dementia in other diseases classified elsewhere with behavioral disturbance; F02.81 - Dementia in other diseases classified elsewhere with behavioral disturbance; F02.81 - Dementia in other diseases classified elsewhere with behavioral disturbance (13) Hyperglycemia Current Visit: Yes Status: Acute found to be hyperglycemic on arrival initially placed on insulin drip continue to monitor glucose q2h (14) Pulmonary nodule Current Visit: Yes Status: Acute found on CT chest considered high risk given tobacco history patient is critically ill at this time (15) Solitary kidney Current Visit: Yes Status: Acute known 1 kidney underlying CKD (16) DVT prophylaxis Current Visit: Yes Status: Acute (17) Goals of care, counseling/discussion Current Visit: Yes Status: Acute after intubation discussion with family code status changed from FULL CODE to DNR CCA History of Present Illness Consult date: 12/16/17 Requesting physician: Abhilash Bocanegra Reason for consult: dyspnea, other (hypotension) Chief complaint: confusion, hypotension, septic shock History of present illness: Chacorta is a 82-year-old male history of chronic kidney disease, diabetes, COPD, Alzheimer's dementia who was admitted to [facility] for concern of urinary tract infection and sepsis. Patient has baseline dementia and is a very poor historian. History was obtained through the son as well as emergency physicians documentation. The son, Remberto, lives with the patient and assists with his daily life. Reports that over the past 2 to 3 days he has been confused and not acting himself. The son brought him in concern for stroke. CT of his head was unremarkable for hemorrhagic stroke but was limited to motion artifact. Patient was found to be hyperglycemic. The son noted blood glucose was greater than 500 at home and he actually gave the patient 3 of his normal doses of Glipizide. His serum ketones was also elevated 0.67. Urinalysis was concerning for urinary tract infection. He was empirically treated with Zosyn, Vancomycin, Levaquin as he was recently hospitalized but also had a lactate elevated 2.6. He has underlying chronic kidney disease and had an elevated troponin 0.22. EKG showed ST depressions that appear stable from prior. Of note patient was recently discharged from the hospital November 22 for COPD exacerbation. Son states about a week ago the patient had fallen but did not hit his head. Since then he has been very weak and unable to ambulate with a cane as he normally does. About 3 days ago they received a nebulizer machine to help assist with his breathing. The patient was admitted to the hospital for UTI, hyperglycemia, and dyspnea. When he arrived to the floor a rapid response was called on 2A. He was found to be in respiratory distress, hypoxic and hypotensive. Poor perfusion noted and mottling to the skin. As a result patient was transferred to the intensive care unit where the pulmonology/critical care service was consulted. Patient remained confused but protecting his airway. He was placed on the BiPAP to assist with his reported increase worker breathing and hypoxia. Oxygen saturations immediately improved to 100%. His blood pressures however remained low in the SBP 80-90s. During the placement of the CVC patient became unresponsive, apneic and bradycardic. Emergent right femoral CVC was placed. He was intubated successfully under RSI. He was placed originally placed on Dopamine for certain of cardiogenic failure. An arterial line was placed for better monitoring of his blood pressure and hemodynamics. He did have a run of unstable SVT HR 140s and was shocked with 100J and then again with 150J. He converted back to NSR and currently on Levophed and Vasopressin. Full septic work up initiated. Past Med Surg Social Fam HX - Past Medical History Source: old records reviewed, obtained from family Medical history: dementia, diabetes, hypertension, renal disease Psychiatric history: depression - Past Surgical History Surgical History: carotid endarterectomy, cholecystectomy, other - Social History Smoking Status: Current every day smoker Smokeless Tobacco Status: No Alcohol use: rarely Drug use: none - Family History Father Family Member Ethnicity: Non- Living Status: Hx Family Cancer: Yes Mother Family Member Ethnicity: Non- Living Status: Brother Family Member Ethnicity: Non- Living Status: Still Living Hx Family Cardiac Disorders: Yes (Heart blockages) Sister Family Member Ethnicity: Non- Living Status: Still Living ROS unobtainable: due to endotracheal tube, due to mental status All Systems: The remainder of the systems were reviewed and are negative Physical Examination Vital Signs: Vital Signs, Last 4 Hours Temp Pulse Resp BP Pulse Ox 12/16/17 13:19 24 81/70 100 12/16/17 12:54 120 12/16/17 12:13 98.4 F 120 25 87/63 100 12/16/17 12:05 35 115/101 94 12/16/17 11:25 22 118/84 General appearance: other (confused, does not follow commands, baseline dementia , no focal neuro deficits) Eyes: nonicteric ENT: oropharynx dry Neck: supple Effort: mildly labored Auscultation: bilateral: clear, diminished breath sounds Cardiovascular: regular rate and rhythm Gastrointestinal: normoactive bowel sounds, soft, non-tender, non-distended Integumentary: other (mottling to lower extremities extending up to knees) Extremities: no edema, no ischemia or petechiae, cool, cyanosis Musculoskeletal: no deformities, ROM normal non-focal exam, motor strength normal and symmetric, unable to assess due to mental status anxious Ventilator Settings Ventilator Settings: Ventilator Settings, Last 8 Hours Ventilator Mode VC+ Ventilator Tidal Volume 500 Setting Ventilator Tidal Volume 450 Setting Ventilator Respiratory Rate 12 Setting Ventilator Respiratory Rate 12 Setting Actual Respiratory Rate 24 Positive End Expiratory 5 Pressure Positive End Expiratory 8 Pressure Peak Inspiratory Airway 7 Pressure Results - Laboratory Findings CBC and BMP: 12/16/17 14:22 12/16/17 14:22 ABG ABG pH 7.38 pH Units (7.32-7.45) 12/16/17 12:36 ABG pCO2 25 mmHg (35-45) L 12/16/17 12:36 ABG pO2 229 mmHg (85-104) H 12/16/17 12:36 ABG O2 Saturation 100 % (95-98) H 12/16/17 12:36 PT/INR, D-dimer PT 14.1 Seconds (9.4-12.1) H 12/16/17 14:22 Abnormal lab findings: Abnormal lab results RBC 3.60 M/mcL (4.19-5.50) L 12/16/17 14:22 Hgb 11.0 g/dL (12.9-16.9) L D 12/16/17 14:22 Hct 35.2 % (37.5-50.1) L 12/16/17 14:22 MCHC 31.3 g/dL (31.6-35.5) L 12/16/17 14:22 Neutrophils # 11.5 K/mcL (1.6-8.9) H 12/16/17 08:21 Nucleated RBCs/100 WBC 0.4 /100 WBC (0) H 12/16/17 14:22 PT 14.1 Seconds (9.4-12.1) H 12/16/17 14:22 APTT 25.5 Seconds (26.0-36.0) L 12/16/17 08:21 ABG pCO2 25 mmHg (35-45) L 12/16/17 12:36 ABG pO2 229 mmHg (85-104) H 12/16/17 12:36 ABG HCO3 15 mEq/L (21-27) L 12/16/17 12:36 ABG Total CO2 15 mEq/L (20-26) L 12/16/17 12:36 ABG O2 Saturation 100 % (95-98) H 12/16/17 12:36 ABG Base Excess -9 mEq/L (-2 to 3) L 12/16/17 12:36 VBG pH 7.29 pH Units (7.32-7.42) L 12/16/17 09:39 VBG pCO2 52 mmHg (41-51) H 12/16/17 09:39 Sodium 151 mEq/L (136-145) H 12/16/17 12:53 Potassium 5.3 mEq/L (3.5-5.1) H 12/16/17 12:53 Chloride 122 mEq/L (98-107) H 12/16/17 12:53 Carbon Dioxide 13 mEq/L (23-29) L 12/16/17 12:53 BUN 90 mg/dL (8-23) H 12/16/17 12:53 Creatinine 4.09 mg/dL (0.70-1.30) H 12/16/17 12:53 Est GFR ( Amer) 17 (> 60) L 12/16/17 12:53 Est GFR (Non-Af Amer) 14 (> 60) L 12/16/17 12:53 Glucose 219 mg/dL (70-105) H 12/16/17 12:53 Calculated Osmolality 346 (280-300) H 12/16/17 12:53 Lactic Acid 8.2 mmol/L (0.5-2.2) H* 12/16/17 12:34 Calcium 8.4 mg/dL (8.6-10.3) L 12/16/17 12:53 Direct Bilirubin 0.3 mg/dL (0.0-0.2) H 12/16/17 12:53 Alkaline Phosphatase 158 Units/L (34-104) H 12/16/17 12:53 Creatine Kinase 28 Units/L (30-223) L 12/16/17 08:21 Troponin I 0.16 ng/mL (< 0.04) H* 12/16/17 12:53 Serum Total Protein 4.9 g/dL (6.4-8.9) L 12/16/17 12:53 Albumin 2.0 g/dL (3.5-5.7) L 12/16/17 12:53 Albumin/Globulin Ratio 0.7 (1.1-2.2) L 12/16/17 12:53 Beta-Hydroxybutyric Acd 0.67 mmol/L (0.02-0.27) H 12/16/17 08:21 Urine Clarity Turbid (Clear) A 12/16/17 08:16 Urine Protein 100 mg/dL (Neg-Trace) H 12/16/17 08:16 Urine Glucose (UA) >=1000 mg/dL (Normal) H 12/16/17 08:16 Urine Blood Moderate (Negative) H 12/16/17 08:16 Ur Leukocyte Esterase Moderate (Negative) H 12/16/17 08:16 Urine Microscopic RBC 15-30 per hpf (0-3) H 12/16/17 08:16 Urine Microscopic WBC 30-50 per hpf (0-3) H 12/16/17 08:16 Urine Bacteria Many per hpf (None-Few) H 12/16/17 08:16 Ur Culture Indicated? YES (NO) A 12/16/17 08:16 - Clinical Findings Intake & Output: Intake & Output 04/01/18 04/02/18 04/02/18 23:59 07:59 15:59 Weight 60.2 kg
[2017-12-16 15:06] LABS: Lymphocytes # 0.5 K/mcL (0.6-4.6); Monocytes # 0.3 K/mcL (0.0-1.3); Neutrophils # 7.5 K/mcL (1.6-8.9); Platelet Estimate Normal (Normal)
[2017-12-16] MEDS ORDERED: Lacri-Lube 3.5 GM TUBE BOTH EYES PRN (15:10)
[2017-12-16] MEDS: Ipratropium/Albuterol Neb 3 ML IH SCH ×3 (15:15→23:59)
[2017-12-16 15:35] LABS: Calcium 8.7 mg/dL (8.6-10.3)
[2017-12-16 15:36] LABS: Albumin 2.5 g/dL (3.5-5.7); Albumin/Globulin Ratio 0.7 (1.1-2.2); Globulin 3.4 g/dL (2.4-3.5); Total Protein 5.9 g/dL (6.4-8.9)
[2017-12-16 15:36] LABS: ABG Base Excess -6 mEq/L (-2 to 3); ABG HCO3 19 mEq/L (21-27); ABG Oxygen Saturation 99 % (95-98); ABG PCO2 36 mmHg (35-45); ABG PH 7.34 pH Units (7.32-7.45); ABG PO2 132 mmHg (85-104); ABG TCO2 20 mEq/L (20-26); Blood Gas Modality VC; Blood Gas PEEP 5 cm H2O; Blood Gas Respiration Rate 18; Blood Gas VT 450 cc
[2017-12-16 15:40] LABS: Troponin I 0.32 ng/mL (< 0.04)
[2017-12-16 15:53] LABS: Bilirubin,Direct 0.7 mg/dL (0.0-0.2); Bilirubin,Indirect 0.4 mg/dL (0.0-1.2); Bilirubin,Total 1.1 mg/dL (0.3-1.0)
--- NOTE | 2017-12-16 15:55 | Procedure Note ---
Date of procedure: 12/16/17 Pre-op diagnosis: Respiratory failure Post-op diagnosis: same Procedure: Intubation Surgeon: Wyatt Moreira Was there an school bus driver/teacher assistant present: No Estimated blood loss (cc): 0 Specimen: NONE Pathology: none sent Condition: critical Disposition: no change Procedures: Internal Med - Intubation Sedative: Etomidate Amount Given: 10 Laryngoscope: glidescope ET tube size: 7.5 ET tube uncuffed: Yes Tube secured depth (cm): 22 Tube secured location: lips Tube placement confirmation: visualized tube passing through cords, equal breath sounds bilaterally, no breath sounds over epigastrium, confirmation by capnometry Patient tolerated procedure: well Intubation complications: none
[2017-12-16 15:56] LABS: VBG Ionized Calcium 1.17 mmol/L (1.15-1.35)
[2017-12-16] MEDS: methylPREDNISolone 125 MG/2 ML VIAL IVP SCH ×3 (16:17→23:44)
[2017-12-16] MEDS ORDERED: Aspirin 325 MG TABLET PO ONE (16:54)
--- NOTE | 2017-12-16 17:44 | Sepsis Event Note ---
Sepsis Reassessment Note - Evaluation Sepsis Screen: No Definite Risk Current Stage of Sepsis: septic shock Possible Source of Sepsis: unknown (originally suspected UTI) - Focused Exam Date of Encounter: 12/16/17 Time of Encounter: 17:43 Vital Signs: Vital Signs Temp Pulse Resp BP Pulse Ox 12/16/17 17:12 23 87/62 99 12/16/17 15:15 18 85/69 100 12/16/17 15:00 100 22 111/48 97 12/16/17 14:45 120 22 85/64 98 12/16/17 14:00 139 18 82/49 100 12/16/17 13:19 24 81/70 100 12/16/17 13:00 138 4 57/47 90 12/16/17 12:54 120 12/16/17 12:30 98.4 F 120 25 102/81 98 12/16/17 12:13 98.4 F 120 25 87/63 100 Respiratory Exam: Present: respiratory distress, decreased breath sounds Cardiovascular Exam: Present: RRR Capillary Refill: > 2 seconds Peripheral Pulse Strength: 1+ faint Peripheral Pulse Location: Radial Skin Exam: mottling (lower extremities) - Reassessment Comments Comments: Currently requiring Levophed and Vasopressin. Lactate increased from 2.6 to 8.2.
[2017-12-16] MEDS: Lacri-Lube 3.5 GM TUBE BOTH EYES SCH ×3 (17:59→23:22)
[2017-12-16] MEDS ORDERED: *HR* Heparin 5,000 UNIT/ML VIAL SQ SCH (18:00)
[2017-12-16] MEDS: Piperacillin/Tazobactam 3.375 GM in 0.9 % Sodium Chloride Mini Bag 100 ML IVPB SCH (18:10)
[2017-12-16 19:18] LABS: Adenovirus Not Detected (Not Detect); Bordetella Pertussis Not Detected (Not Detect); Chlamydophila pneumoniae Not Detected (Not Detect); Coronavirus 229E Not Detected (Not Detect); Coronavirus HKU1 Not Detected (Not Detect); Coronavirus NL63 Not Detected (Not Detect); Coronavirus OC43 Not Detected (Not Detect); Human Metapneumovirus Not Detected (Not Detect); Human Rhinovirus/Enterovirus Not Detected (Not Detect); Influenza A Subtype 2009 H1 Not Detected (Not Detect); Influenza A Untypeable Not Detected (Not Detect); Influenza B Not Detected (Not Detect); Mycoplasma pneumoniae Not Detected (Not Detect); Parainfluenza Virus 1 Not Detected (Not Detect); Parainfluenza Virus 2 Not Detected (Not Detect); Parainfluenza Virus 3 Not Detected (Not Detect); Parainfluenza Virus 4 Not Detected (Not Detect); Respiratory Syncytial Virus Not Detected (Not Detect)
[2017-12-16] MEDS ORDERED: Acetaminophen 325 MG TABLET PO PRN (19:19)
[2017-12-16] MEDS ORDERED: Ringers Solution, Lactated 1,000 ML IVC SCH (20:00)
[2017-12-16] MEDS ORDERED: Phenylephrine 10 MG in D5% in Water 250 ML IVC SCH (20:15)
[2017-12-16 20:33] LABS: Calcium 8.2 mg/dL (8.6-10.3); Potassium 4.7 mEq/L (3.5-5.1)
[2017-12-16] MEDS ORDERED: Perflutren Lipid Microsphere 1.3 ML in 0.9 % Sodium Chloride 8.7 ML IVP ONE (20:38)
[2017-12-16 20:39] LABS: Hematocrit 31.3 % (37.5-50.1); Hemoglobin 9.9 g/dL (12.9-16.9); Lymphocytes # 0.3 K/mcL (0.6-4.6); Mean Corpuscular HGB Conc 31.6 g/dL (31.6-35.5); Mean Corpuscular Hemoglobin 30.8 pg (28.0-33.3); Mean Corpuscular Volume 97.5 fL (83.0-100.0); Mean Platelet Volume 11.7 fL (9.4-12.4); Nucleated Red Blood Cells 1.2 /100 WBC (0); Platelet Count 136 K/mcL (140-400); Red Blood Count 3.21 M/mcL (4.19-5.50); Red Cell Distribution Width 13.7 % (11.5-14.5)
[2017-12-16] MEDS ORDERED: Chlorhexidine Rinse 15 ML MOUTHWASH MM SCH (21:00)
[2017-12-16 21:06] LABS: Neutrophils # 13.7 K/mcL (1.6-8.9); Platelet Estimate Slight Decrease (Normal)
[2017-12-16] MEDS ORDERED: Norepinephrine 8 MG in D5% in Water 500 ML IVC SCH (23:00)
[2017-12-16 23:07] LABS: Acinetobacter baumannii by PCR Not Detected (Not Detect); Enterococcus by PCR Not Detected (Not Detect); Staphylococcus aureus by PCR Not Detected (Not Detect); Streptococcus agalactiae(B)PCR Not Detected (Not Detect); Streptococcus by PCR Not Detected (Not Detect); Streptococcus pneumoniae PCR Not Detected (Not Detect); Streptococcus pyogenes (A) PCR Not Detected (Not Detect); blaKPC Carbapenem-Resist Gene Not Detected (Not Detect); mecA Methicillin-Resist Gene Not Detected (Not Detect); vanA/B Vancomycin-Resist Genes Not Detected (Not Detect)
[2017-12-16 23:08] LABS: Candida albicans by PCR Not Detected (Not Detect); Candida glabrata by PCR Not Detected (Not Detect); Candida krusei by PCR Not Detected (Not Detect); Candida parapsilosis by PCR Not Detected (Not Detect); Candida tropicalis by PCR Not Detected (Not Detect); Escherichia coli by PCR ***DETECTED*** (Not Detect); Klebsiella oxytoca by PCR Not Detected (Not Detect); Klebsiella pneumoniae by PCR Not Detected (Not Detect); Pseudomonas aeruginosa by PCR Not Detected (Not Detect); Serratia marcescens by PCR Not Detected (Not Detect)
[2017-12-17] MEDS ORDERED: Phenylephrine 20 MG in D5% in Water 500 ML IVC SCH
[2017-12-17] MEDS ORDERED: Ringers Solution, Lactated 500 ML IVC ONE ×2 (00:39→02:33)
[2017-12-17 02:08] VITALS: BP 79/63
[2017-12-17] MEDS: Piperacillin/Tazobactam 3.375 GM in 0.9 % Sodium Chloride Mini Bag 100 ML IVPB SCH (02:28)
--- NOTE | 2017-12-17 02:49 | Death Note ---
Pronouncement Note - Date and Time of Date of : 12/17/17 Time of : 02:47 - PCOD Preliminary cause of : Cardiac arrest - Additional Data Confirmation of : no pulse, no respirations, no heart sounds, pupils fixed and dilated Family: at bedside Attending/PCP notified?: No Attending physician: Saba Queen MD Was code activated?: No Autopsy requested?: No coroner/medical examiner notified?: No
--- NOTE | 2017-12-17 02:51 | Death Note ---
<Darrius Colon - Last Filed: 12/17/17 02:49> Discharge Sum: Summary - Date and Time Date of admission: 12/16/17 12:07 Date of : 12/17/17 Time of : 02:47 - Summary Details: 82-year-old male who was admitted to Hospital for altered mental status, septic shock, hyperglycemia, stage IV kidney disease as well as pneumonia and urinary tract infection. He was recently admitted on 11/22/17 for COPD exacerbation. He was admitted to the intensive care unit for further evaluation and management. He did present with severe sepsis to the emergency room. Additional significant laboratory findings including a glucose 622, lactic acid 2.6, WBC of 13.7. He did receive central venous cannulation for blood pressure support and he was intubated for acute respiratory failure. He is placed on vancomycin , Levaquin, and Zosyn for empiric coverage. Despite fluid resuscitation, antibiotic coverage, the use of 3 vasopressors, and ventilation, the patient did unfortunately decompensated. The family, who was present at bedside, did acknowledge and understand his poor prognosis. They did agree to change his CODE STATUS at that time to DNR-CC. Patient remained hypotensive despite maximum dosage of 3 vasopressors and began to demonstrate bradycardia. The family agreed to terminally extubate and ventilator was disconnected. He is pronounced by this physician at 0247 by evidence of absent heart sounds , absent breath sounds, fixed and dilated pupils, no pulses. At this time, preliminary cause of is suspected septic shock with cardiac arrest secondary to pneumonia, urinary tract infection. - Additional Data Confirmation of as documented by pronouncing clinician: no pulse, no respirations, no heart sounds, pupils fixed and dilated Family: at bedside Attending physician: Saba Queen MD Was code activated?: No Autopsy requested?: No document examiner notified?: No Discharge Sum: Diag - PCOD Probable Cause of : Septic shock Discharge Sum: Prov - Provider Primary care physician: Ministerio Mancia MD Consults: 12/16/17 12:40 Consult to Pulmonology [CONS] Stat Consulting Provider: [facility] [place] Reason for Consult: sepsis, respiratory failure Time Notified: 12:41 Call Completed: Yes Pronouncing clinician: Darrius Colon <Ermelinda Villalba - Last Filed: 12/17/17 04:23> Discharge Sum: Summary - Date and Time Date of admission: 12/16/17 12:07 - Additional Data Attending physician: Saba Queen MD Discharge Sum: Prov - Provider Primary care physician: Ministerio Mancia MD Consults: 12/16/17 12:40 Consult to Pulmonology [CONS] Stat Consulting Provider: [facility] Reason for Consult: sepsis, respiratory failure Time Notified: 12:41 Call Completed: Yes - Attending Attestation I examined this patient and my medical decision-making was reviewed with the Resident Physician Dr. Colon. I agree with the documented findings, disposition and treatment plan as described except to the extent set forth below. Mr. Gerard is a 82 y/o M with known PMH of COPD, Dementia, HTN, CKD-4, Renal cell cancer, with solitary kidney who recently admitted here for COPD exacerbation now he was brought into ER by family y/d with worsening SOB and altered mental status. Pt does have severe sepsis with multi lobular pneumonia. He was admitted to regular floor and started him on broad spec abx. Apparently few hours later he became severely hypoxic pt was transferred to ICU and intubated him. He did go to septic shock so vasopressors were initiated. He also happened to have unstable SVT for which he was given shocks x 2. Tonight he became anuric and severe hypotensive. So I added another vasopressor Neosynephrine on top of Levophed and Vasopressin. Also gave him NS IVF boluses. However his BP was still in 70's and pt condition seems to be deteriorating so rapidly. Talked to pt's family at bed side who requested for comfort care and agreed for terminal extubation. However later in few minutes he was pronounced by resident Dr. Colon @ 0247.
[2017-12-17] MEDS: Ipratropium/Albuterol Neb 3 ML IH SCH (03:28)
[2017-12-17] MEDS ORDERED: Pantoprazole 40 MG VIAL IVP SCH (09:00)
[2017-12-17] MEDS ORDERED: Vancomycin 1 EACH in 0.9 % Sodium Chloride 250 ML IVPB PRN (12:00)
[2017-12-18] MEDS ORDERED: Levofloxacin 500 MG/100 ML 500 MG/100 ML BAG IVPB SCH (09:00)
== END 2017-12-17 02:47 | disposition expired | DRG 871 ==
LOC: EMEROO 07:59 → 2ANU 07:59 → ICNU 11:59
PROVIDERS: ADMIT Hospitalist; ATTEND Internal Medicine